=== PATIENT | male | born 1945 | race Caucasian/White ===

== ENCOUNTER 2018-05-19 00:08 | Inpatient (IN) ==
[2018-05-19] MEDS ORDERED: Sod Chloride 0.9% Inj 1,000 ML IV.SIG ONE (00:41)
[2018-05-19 01:10] LABS: Baso % (Auto) 0.2 % (0.0-2.0); Eos # (Auto) 0.1 th/mm3 (0.0-0.4); Eos % (Auto) 0.7 % (0.0-4.0); Hematocrit 30.3 % (39.0-51.0); Hemoglobin 10.2 gm/dL (13.0-17.0); Lymph # (Auto) 0.5 th/mm3 (1.0-4.8); Lymph % (Auto) 4.1 % (9.0-44.0); Mean Corpuscular HGB Conc 33.5 % (32.0-36.0); Mean Corpuscular Volume 104.4 fL (80.0-100.0); Mean Platelet Volume 8.3 fL (7.0-11.0); Mono # (Auto) 1.8 th/mm3 (0.0-0.9); Mono % (Auto) 15.6 % (0.0-8.0); Neut # (Auto) 9.2 th/mm3 (1.8-7.7); Neut % (Auto) 79.4 % (16.0-70.0); Platelet Count 206 th/mm3 (150-450); Red Cell Distribution Width 13.6 % (11.6-17.2); White Blood Count 11.6 th/mm3 (4.0-11.0)
[2018-05-19 01:16] LABS: Amorphous Sediment,Urine Rare /hpf; Bilirubin,Urine Negative (Negative); Clarity,Urine Clear (Clear); Color,Urine Yellow (Yellw/Straw); Glucose,Urine (UA) Negative (Negative); Leukocyte Esterase,Urine Negative (Negative); Mucus,Urine Few /lpf (Occasional); Nitrite,Urine Negative (Negative); Specific Gravity,Urine 1.012 (1.002-1.035)
[2018-05-19 01:27] LABS: Alkaline Phosphatase 94 U/L (45-117); Total Protein 7.5 g/dL (6.4-8.2)
--- NOTE | 2018-05-19 01:31 | ED ---
HPI General Chief Complaint: Abdominal Pain Stated Complaint: Dizziness Time Seen by Provider: 05/19/18 00:35 Source: patient Mode of arrival: ambulatory Limitations: no limitations History of Present Illness HPI narrative: 72-year-old male came to the emergency room with history of lower abdominal pain that started yesterday. Patient points to the lower part of the abdomen and says that the pain is worse when he bends over to tie his shoelaces. Currently the pain is 0 out of 10 but at its worst it has been 7 or 8 out of 10. He has been nauseous but no vomiting diarrhea. Patient went to the urgent care where after listening to his history that admitted him going to the emergency room. Vital signs are relatively stable. Patient says he has been getting chills at home with a T-max of 102. No such similar pain in the past. Related Data Home Medications Medication Instructions Recorded Confirmed Zopiclone 7 mg PO HS 05/19/18 allopurinol 100 mg PO DAILY 05/19/18 05/19/18 ferrous fumarate 600 mg PO HS 05/19/18 05/19/18 furosemide 40 mg PO DAILY 05/19/18 05/19/18 Previous Rx's Medication Instructions Recorded cyclobenzaprine 5 mg PO Q8H PRN #10 tab 05/23/18 levofloxacin 250 mg PO Q48H #4 tab 05/23/18 metronidazole [Flagyl] 500 mg PO Q8H 7 Days #21 tab 05/23/18 pantoprazole [Protonix] 40 mg PO DAILY #30 tab 05/23/18 prednisone 10 mg PO DIRECTED #13 tab 05/23/18 Allergies Allergy/AdvReac Type Severity Reaction Status Date / Time No Known Allergies Allergy Verified 05/19/18 00:20 Review of Systems ROS: all other systems reviewed are negative [facility] Medical History Medical History CKD (chronic kidney disease) (Acute) Gout (Acute) Hypertension (Acute) Liver cyst (Acute) Low iron (Acute) Macular degeneration (Acute) Surgical History Surgical History H/O umbilical hernia repair (Acute) Social History Social History Substance History: No History of Abuse Second Hand Smoke Exposure: No Smoking Status: Never smoker How Often Do You Have a Drink Containing Alcohol: 4 or more times a week Recent Travel in [facility] within the Last 8 Weeks: No Recent Out of Country Travel within the Last 8 Weeks: No Immunization History Tetanus Immunization: <5 Years Exam Narrative Exam Narrative: GENERAL: Awake, alert, anxious, moderate distress, obese SKIN: Focused skin assessment warm/dry. HEAD: Atraumatic. Normocephalic. EYES: Pupils equal and round. No scleral icterus. No injection or drainage. ENT: No nasal bleeding or discharge. Mucous membranes pink and moist. NECK: Trachea midline. No JVD. CARDIOVASCULAR: Regular rate and rhythm. No murmur appreciated. RESPIRATORY: No accessory muscle use. Clear to auscultation. Breath sounds equal bilaterally. GASTROINTESTINAL: Abdomen soft, non-tender, nondistended. Hepatic and splenic margins not palpable. MUSCULOSKELETAL: No obvious deformities. No clubbing. No cyanosis. No edema. NEUROLOGICAL: Awake and alert. No obvious cranial nerve deficits. Motor grossly within normal limits. Normal speech. PSYCHIATRIC: Appropriate mood and affect; insight and judgment normal. Course Initial Documented Vital Signs Temperature 99.1 F 05/19/18 00:20 Pulse Rate 97 H 05/19/18 00:20 Respiratory Rate 16 05/19/18 00:20 Blood Pressure 134/64 05/19/18 00:20 Pulse Oximetry 94 L 05/19/18 00:20 Last Documented Vital Signs Temperature 97.2 F L 05/23/18 05:10 Pulse Rate 70 05/23/18 05:10 Respiratory Rate 18 05/23/18 05:10 Blood Pressure 98/53 L 05/23/18 05:10 Pulse Oximetry 96 05/23/18 05:10 Critical Care Time Critical Care Time: Yes Total Critical Care Time: 30 Attestation: Aggregate critical care time was 30 minutes. Time to perform other separately billable procedures was not included in the critical care time. My time did not include minutes spent treating any other patients simultaneously or on activities that did not directly contribute to the patient's treatment. The services I provided to this patient were to treat and/or prevent clinically significant deterioration that could result in: Acute renal failure, hyperkalemia, correction I provided critical care services requiring my management, as noted below: Chart data review, documentation time, medication orders and management, vital sign assessments/reviewing monitor data, ordering and reviewing lab tests, ordering and interpreting/reviewing x-rays and diagnostic studies, care of the patient and discussion of the patient with the admitting physicians. Medical Decision Making MDM Narrative Medical decision making narrative: 1:30 AM awaiting for blood test result. Patient has been given 1 L of IV fluid bolus and morphine for the pain. Awaiting for the blood test results. 2:55 AM blood test results are obtained and patient has acute renal failure with a potassium of 5.9. BUN is 19 and creatinine is 5.95. Case was discussed with the narrow gauge operator who at this point did not think the patient needed to go to the ICU. I also discussed the case with Dr. Lee was concession manager for nephrology. He does not think patient needs an emergent dialysis however he will consult on the patient. Awaiting for the hospitalist to call back. Meanwhile the CT scan was done without contrast and shows diverticulosis. UA is negative. At this point my concern is that most probably patient has this pain from diverticulitis. I have given him oral ciprofloxacin and Flagyl. Blood culture has been ordered and pending. I have updated the patient and his regarding this. They are agreeable to the plan of admission. Medical Screen Exam Complete: Yes Emergency Medical Condition: Yes Lab Data Result diagrams: 05/21/18 06:05 05/23/18 06:00 Lab Results 05/19/18 05/19/18 05/19/18 Range/Units 00:55 00:55 00:55 WBC 11.6 H (4.0-11.0) th/mm3 RBC 2.90 L (4.50-5.90) mil/mm3 Hgb 10.2 L (13.0-17.0) gm/dL Hct 30.3 L (39.0-51.0) % MCV 104.4 H (80.0-100.0) fL MCH 35.0 H (27.0-34.0) pg MCHC 33.5 (32.0-36.0) % RDW 13.6 (11.6-17.2) % Plt Count 206 (150-450) th/mm3 MPV 8.3 (7.0-11.0) fL Neut % (Auto) 79.4 H (16.0-70.0) % Lymph % (Auto) 4.1 L (9.0-44.0) % [place] % (Auto) 15.6 H (0.0-8.0) % Eos % (Auto) 0.7 (0.0-4.0) % Baso % (Auto) 0.2 (0.0-2.0) % Neut # (Auto) 9.2 H (1.8-7.7) th/mm3 Lymph # (Auto) 0.5 L (1.0-4.8) th/mm3 [place] # (Auto) 1.8 H (0.0-0.9) th/mm3 Eos # (Auto) 0.1 (0.0-0.4) th/mm3 Baso # (Auto) 0.0 (0.0-0.2) th/mm3 WBC Differential . Differential Comment Auto diff final Sodium 131 L (136-145) meq/L Potassium 5.9 H (3.5-5.1) meq/L Chloride 103 (98-107) meq/L Carbon Dioxide 18.6 L (21.0-32.0) meq/L Anion Gap 9 (5-15) meq/L BUN 92 H (7-18) mg/dL Creatinine 5.92 H (0.60-1.30) mg/dL Estimated GFR 9 L (>89) mL/min Random Glucose 105 (74-106) mg/dL Lactic Acid 0.8 (0.4-2.0) mmol/L Calcium 8.2 L (8.5-10.1) mg/dL Phosphorus (2.5-4.9) mg/dL Magnesium 2.2 (1.5-2.5) mg/dL Total Bilirubin 0.4 (0.2-1.0) mg/dL AST 33 (15-37) U/L ALT 33 (12-78) U/L Alkaline Phosphatase 94 (45-117) U/L Total Protein 7.5 (6.4-8.2) g/dL Albumin 3.1 L (3.4-5.0) g/dL Lipase 223 (73-393) U/L Vitamin B12 (193-986) pg/mL Folate (3.1-17.5) ng/mL Urine Color (Yellw/Straw) Urine Clarity (Clear) Urine pH (5.0-8.5) Ur Specific [place] (1.002-1.035) Urine Protein (Neg-Trace) mg/dL Urine Glucose (UA) (Negative) mg/dL Urine Ketones (Negative) mg/dL Urine Occult Blood (Negative) Urine Nitrate (Negative) Urine Bilirubin (Negative) Urine Urobilinogen (Less than 2) mg/dL Ur Leukocyte Esterase (Negative) Urine RBC (0-3) /hpf Urine WBC (0-5) /hpf Amorphous Sediment (None) /hpf Urine Mucus (Occasional) /lpf Micro UA Comment Ur Microscopic Review Urine Culture Comments 05/19/18 05/19/18 05/19/18 Range/Units 01:00 13:05 13:05 WBC 9.5 (4.0-11.0) th/mm3 RBC 2.42 L (4.50-5.90) mil/mm3 Hgb 9.0 L (13.0-17.0) gm/dL Hct 25.4 L (39.0-51.0) % MCV 104.8 H (80.0-100.0) fL MCH 36.9 H (27.0-34.0) pg MCHC 35.2 (32.0-36.0) % RDW 13.8 (11.6-17.2) % Plt Count 170 (150-450) th/mm3 MPV 8.0 (7.0-11.0) fL Neut % (Auto) 78.6 H (16.0-70.0) % Lymph % (Auto) 6.2 L (9.0-44.0) % [place] % (Auto) 14.6 H (0.0-8.0) % Eos % (Auto) 0.3 (0.0-4.0) % Baso % (Auto) 0.3 (0.0-2.0) % Neut # (Auto) 7.5 (1.8-7.7) th/mm3 Lymph # (Auto) 0.6 L (1.0-4.8) th/mm3 [place] # (Auto) 1.4 H (0.0-0.9) th/mm3 Eos # (Auto) 0.0 (0.0-0.4) th/mm3 Baso # (Auto) 0.0 (0.0-0.2) th/mm3 WBC Differential . Differential Comment Auto diff final Sodium 136 (136-145) meq/L Potassium 4.8 D (3.5-5.1) meq/L Chloride 108 H (98-107) meq/L Carbon Dioxide 20.0 L (21.0-32.0) meq/L Anion Gap 8 (5-15) meq/L BUN 84 H (7-18) mg/dL Creatinine 5.33 H (0.60-1.30) mg/dL Estimated GFR 11 L (>89) mL/min Random Glucose 153 H (74-106) mg/dL Lactic Acid (0.4-2.0) mmol/L Calcium 8.1 L (8.5-10.1) mg/dL Phosphorus (2.5-4.9) mg/dL Magnesium (1.5-2.5) mg/dL Total Bilirubin (0.2-1.0) mg/dL AST (15-37) U/L ALT (12-78) U/L Alkaline Phosphatase (45-117) U/L Total Protein (6.4-8.2) g/dL Albumin (3.4-5.0) g/dL Lipase (73-393) U/L Vitamin B12 (193-986) pg/mL Folate (3.1-17.5) ng/mL Urine Color Yellow (Yellw/Straw) Urine Clarity Clear (Clear) Urine pH 5.0 (5.0-8.5) Ur Specific [place] 1.012 (1.002-1.035) Urine Protein 30 H (Neg-Trace) mg/dL Urine Glucose (UA) Negative (Negative) mg/dL Urine Ketones Negative (Negative) mg/dL Urine Occult Blood Small H (Negative) Urine Nitrate Negative (Negative) Urine Bilirubin Negative (Negative) Urine Urobilinogen Less than 2 (Less than 2) mg/dL Ur Leukocyte Esterase Negative (Negative) Urine RBC Less than 1 (0-3) /hpf Urine WBC Less than 1 (0-5) /hpf Amorphous Sediment Rare H (None) /hpf Urine Mucus Few H (Occasional) /lpf Micro UA Comment Culture not ind Ur Microscopic Review Not Reportable Urine Culture Comments Culture not ind 05/20/18 05/20/18 05/21/18 Range/Units 05:19 05:19 06:05 WBC 8.4 8.2 (4.0-11.0) th/mm3 RBC 2.43 L 2.47 L (4.50-5.90) mil/mm3 Hgb 8.8 L 8.9 L (13.0-17.0) gm/dL Hct 26.1 L 26.2 L (39.0-51.0) % MCV 107.1 H 106.1 H (80.0-100.0) fL MCH 36.2 H 36.1 H (27.0-34.0) pg MCHC 33.8 34.1 (32.0-36.0) % RDW 14.0 14.2 (11.6-17.2) % Plt Count 167 180 (150-450) th/mm3 MPV 8.0 7.7 (7.0-11.0) fL Neut % (Auto) 72.3 H 76.1 H (16.0-70.0) % Lymph % (Auto) 8.9 L 7.2 L (9.0-44.0) % Ulster % (Auto) 16.8 H 14.9 H (0.0-8.0) % Eos % (Auto) 1.6 1.6 (0.0-4.0) % Baso % (Auto) 0.4 0.2 (0.0-2.0) % Neut # (Auto) 6.1 6.2 (1.8-7.7) th/mm3 Lymph # (Auto) 0.7 L 0.6 L (1.0-4.8) th/mm3 [place] # (Auto) 1.4 H 1.2 H (0.0-0.9) th/mm3 Eos # (Auto) 0.1 0.1 (0.0-0.4) th/mm3 Baso # (Auto) 0.0 0.0 (0.0-0.2) th/mm3 WBC Differential . . Differential Comment Auto diff final Auto diff final Sodium 139 (136-145) meq/L Potassium 4.6 (3.5-5.1) meq/L Chloride 109 H (98-107) meq/L Carbon Dioxide 19.0 L (21.0-32.0) meq/L Anion Gap 11 (5-15) meq/L BUN 84 H (7-18) mg/dL Creatinine 5.26 H (0.60-1.30) mg/dL Estimated GFR 11 L (>89) mL/min Random Glucose 92 (74-106) mg/dL Lactic Acid (0.4-2.0) mmol/L Calcium 7.8 L (8.5-10.1) mg/dL Phosphorus 3.9 (2.5-4.9) mg/dL Magnesium 2.0 (1.5-2.5) mg/dL Total Bilirubin (0.2-1.0) mg/dL AST (15-37) U/L ALT (12-78) U/L Alkaline Phosphatase (45-117) U/L Total Protein (6.4-8.2) g/dL Albumin (3.4-5.0) g/dL Lipase (73-393) U/L Vitamin B12 (193-986) pg/mL Folate (3.1-17.5) ng/mL Urine Color (Yellw/Straw) Urine Clarity (Clear) Urine pH (5.0-8.5) Ur Specific [place] (1.002-1.035) Urine Protein (Neg-Trace) mg/dL Urine Glucose (UA) (Negative) mg/dL Urine Ketones (Negative) mg/dL Urine Occult Blood (Negative) Urine Nitrate (Negative) Urine Bilirubin (Negative) Urine Urobilinogen (Less than 2) mg/dL Ur Leukocyte Esterase (Negative) Urine RBC (0-3) /hpf Urine WBC (0-5) /hpf Amorphous Sediment (None) /hpf Urine Mucus (Occasional) /lpf Micro UA Comment Ur Microscopic Review Urine Culture Comments 05/21/18 05/22/18 05/23/18 Range/Units 06:05 05:07 06:00 WBC (4.0-11.0) th/mm3 RBC (4.50-5.90) mil/mm3 Hgb (13.0-17.0) gm/dL Hct (39.0-51.0) % MCV (80.0-100.0) fL MCH (27.0-34.0) pg MCHC (32.0-36.0) % RDW (11.6-17.2) % Plt Count (150-450) th/mm3 MPV (7.0-11.0) fL Neut % (Auto) (16.0-70.0) % Lymph % (Auto) (9.0-44.0) % [place] % (Auto) (0.0-8.0) % Eos % (Auto) (0.0-4.0) % Baso % (Auto) (0.0-2.0) % Neut # (Auto) (1.8-7.7) th/mm3 Lymph # (Auto) (1.0-4.8) th/mm3 [place] # (Auto) (0.0-0.9) th/mm3 Eos # (Auto) (0.0-0.4) th/mm3 Baso # (Auto) (0.0-0.2) th/mm3 WBC Differential Differential Comment Sodium 140 142 140 (136-145) meq/L Potassium 4.4 4.5 4.6 (3.5-5.1) meq/L Chloride 110 H 113 H 113 H (98-107) meq/L Carbon Dioxide 19.0 L 19.6 L 17.6 L (21.0-32.0) meq/L Anion Gap 11 9 9 (5-15) meq/L BUN 75 H 68 H 66 H (7-18) mg/dL Creatinine 4.76 H 4.32 H 4.03 H (0.60-1.30) mg/dL Estimated GFR 12 L 14 L 15 L (>89) mL/min Random Glucose 87 96 181 H (74-106) mg/dL Lactic Acid (0.4-2.0) mmol/L Calcium 7.8 L 7.9 L 8.1 L (8.5-10.1) mg/dL Phosphorus (2.5-4.9) mg/dL Magnesium (1.5-2.5) mg/dL Total Bilirubin 0.3 (0.2-1.0) mg/dL AST 17 (15-37) U/L ALT 28 (12-78) U/L Alkaline Phosphatase 89 (45-117) U/L Total Protein 6.2 L D (6.4-8.2) g/dL Albumin 2.7 L (3.4-5.0) g/dL Lipase (73-393) U/L Vitamin B12 477 (193-986) pg/mL Folate 8.8 (3.1-17.5) ng/mL Urine Color (Yellw/Straw) Urine Clarity (Clear) Urine pH (5.0-8.5) Ur Specific [place] (1.002-1.035) Urine Protein (Neg-Trace) mg/dL Urine Glucose (UA) (Negative) mg/dL Urine Ketones (Negative) mg/dL Urine Occult Blood (Negative) Urine Nitrate (Negative) Urine Bilirubin (Negative) Urine Urobilinogen (Less than 2) mg/dL Ur Leukocyte Esterase (Negative) Urine RBC (0-3) /hpf Urine WBC (0-5) /hpf Amorphous Sediment (None) /hpf Urine Mucus (Occasional) /lpf Micro UA Comment Ur Microscopic Review Urine Culture Comments Imaging Data Radiologist's impression: Abdomen/Pelvis CT 05/19/18 00:41 CONCLUSION: 1. Polycystic kidney and liver disease with marked enlargement of the viscera. 2. No acute findings. Colonic diverticulosis. Cholangiopancreatography MRI 05/20/18 00:00 CONCLUSION: 1. Findings consistent with autosomal dominant polycystic kidney disease with innumerable hepatic and renal cysts present. Liver and kidneys are enlarged. 2. No acute findings seen. No gallbladder wall thickening demonstrated. No stones or evidence of ductal obstruction. Gallbladder Ultrasound 05/20/18 00:00 CONCLUSION: 1. Limited examination. 2. No definitive sonographic evidence for cholelithiasis or acute cholecystitis. 3. Numerous hepatic cysts similar to previous exams and consistent with polycystic disease. ECG Data Attestation: I personally reviewed and interpreted this ECG as follows: Interpretation: Twelve-lead EKG was reviewed by me. Normal sinus rhythm, normal axis, nonspecific, lateral T wave inversions. Heart rate of 80 bpm Discharge Plan Discharge Disposition Patient Disposition: 30 Still Patient Discharge Condition Condition: Stable Discharge Order Discharge Orders: Discharge Order (Routine); Ordered 05/23/18 Ordered By: Eduin Ordonez Discharge Details Anticipated Discharge Date: 05/23/18 Physicians Team ED Provider: Yary Fernandes Primary Care Provider: Primary Care Manish,Talia Attending Provider: Eduin Ordonez Other Providers: Saurav Lee ; Tessa Kasper Status ED Status: Left Department Discharge Information Discharge Date/Time: 05/19/18 04:52
--- NOTE | 2018-05-19 01:33 | CT ---
EXAM DATE: 05/19/2018 1:10 AM EST AGE/SEX: 72 years / Male INDICATIONS: Low abdominal pressure X 4 days. CLINICAL DATA: This is the patient's initial encounter. Patient reports that signs and symptoms have been present for 4 - 6 days and indicates a pain score of 4/10. MEDICAL/SURGICAL HISTORY: Renal disease, end stage. Hypertension. Umbilical hernia repair. RADIATION DOSE: 13.42 CTDI (mGy) COMPARISON: No prior exams available for comparison. TECHNIQUE: Multiple contiguous axial images were obtained through the abdomen. Images were obtained using multiple row detector helical technique. Using automated exposure control and adjustment of the mA and/or kV according to patient size, radiation dose was kept as low as reasonably achievable to o btain optimal diagnostic quality images. DICOM format image data is available electronically for rev iew and comparison. FINDINGS: Lung bases are clear. No pleural or pericardial effusion. There is polycystic kidney and liver disease. Liver is enlarged to 28 cm in length and kidneys enlarg ed to 18 cm in length. Innumerable cysts present. There is colonic diverticulosis without evidence for diverticulitis. No free fluid or free air. No bianka wel obstruction. No significant abnormality in the spleen, adrenals or pancreas. No free air or free fluid. CONCLUSION: 1. Polycystic kidney and liver disease with marked enlargement of the viscera. 2. No acute findings. Colonic diverticulosis. Electronically signed by: Adan Lopez MD 05/19/2018 1:32 AM EST
[2018-05-19] MEDS ORDERED: Ciprofloxacin 500 MG Tablet PO ONE (01:40)
[2018-05-19] MEDS ORDERED: metroNIDAZOLE 500 MG Tablet PO ONE (01:40)
[2018-05-19 01:45] LABS: Alanine Aminotransferase 33 U/L (12-78); Albumin 3.1 g/dL (3.4-5.0); Anion Gap 9 meq/L (5-15); Aspartate Aminotransferase 33 U/L (15-37); Blood Urea Nitrogen 92 mg/dL (7-18); Calcium 8.2 mg/dL (8.5-10.1); Carbon Dioxide 18.6 meq/L (21.0-32.0); Chloride 103 meq/L (98-107); Glomerular Filtration Rate 9 mL/min (>89); Glucose,Random 105 mg/dL (74-106); Lipase 223 U/L (73-393); Magnesium 2.2 mg/dL (1.5-2.5); Sodium 131 meq/L (136-145)
[2018-05-19 02:04] LABS: Potassium 5.9 meq/L (3.5-5.1)
[2018-05-19] MEDS ORDERED: Sodium Bicarbonate 8.4% Inj 50 MEQ/50 ML Syringe IV.PUSH ONE (02:07)
[2018-05-19] MEDS ORDERED: Calcium Chloride Inj 1 GM/10 ML Syringe IV.PUSH ONE (02:07)
[2018-05-19] MEDS ORDERED: Bisacodyl 10 MG Supp RECTAL PRN (03:40)
[2018-05-19] MEDS ORDERED: Acetaminophen 325 MG Tablet PO PRN (03:40)
--- NOTE | 2018-05-19 08:35 | P.HPIM ---
History of Present Illness Primary Care Physician: Dr. Singleton Chief Complaint: lower abd pain History of Present Illness: This is a 72-year-old male With a past medical history which includes chronic kidney disease stage IV, gout, arthritis, BPH and hypertension. Patient came to the emergency room yesterday with history of lower abdominal x 3-4 day. Patient describes bilateral lower abdominal pain as a constant dull ache since Monday. Patient also reports T-max at home 102, chills, mild nausea and lack of appetite. Patient denies bright red bleeding per rectum. Patient does report black stools but reports his stools are typically black as he takes iron supplementation. Patient denies vomiting chest pain shortness of breath. Patient primarily lives in [place] does have a home here in [place] and reports he comes down and stays for a few months every year. Patient has a his primary supervisor plate pasting in [place] does not follow with a local supervisor plate pasting. Patient reports he is chronic kidney disease stage IV he believes his GFR is normally around 14 and in fact is waiting for a fistula in [place]. PMH: chronic kidney disease stage IV, gout, arthritis, BPH and hypertension PSxH: Colonoscopy, hand surgery, Hernia repair and Vasectomy Social history: , exercises regularly Retired Occasional EtOH use Denies tobacco use FMH: reviewed and noncontributory Inpatient Certification Inpatient Certification: I certify that the inpatient services were ordered in accordance with Medicare regulations governing the order. This includes certification that hospital inpatient services are reasonable and necessary and in the case of services not specified as inpatient-only under 42 CFR 419.22(n), that they are appropriately provided as inpatient services in accordance to with the 2-midnight benchmark under 43 CFR 412.3(e) Estimated Total Length of Stay (Days): 3 Plans for Post Hospital Care: Home Medications and Allergies Allergies Allergy/AdvReac Type Severity Reaction Status Date / Time No Known Allergies Allergy Verified 05/19/18 00:20 Home Medications Medication Instructions Recorded Confirmed Type Zopiclone 7 mg PO HS 05/19/18 History allopurinol 100 mg PO DAILY 05/19/18 05/19/18 History ferrous fumarate 600 mg PO HS 05/19/18 05/19/18 History furosemide 40 mg PO DAILY 05/19/18 05/19/18 History irbesartan 150 mg PO DAILY 11/24/18 11/24/18 History nifedipine 30 mg PO QAM 05/19/18 05/19/18 History Active Medications: Active Medications Acetaminophen (Tylenol) 650 mg PO Q4H PRN PRN Reason: Temp > 100.4 Al Hydroxide/Mg Hydroxide (Milk Of Magnesia Liq) 30 ml PO Q12H PRN PRN Reason: Mild Constipation Allopurinol (Zyloprim) 100 mg PO DAILY MAGUI Bisacodyl (Dulcolax Supp) 10 mg RECTAL DAILY PRN PRN Reason: SEVERE CONSITIPATION Ferrous Sulfate (Ferosul) 325 mg PO DAILY MAGUI Sodium Chloride (Ns Inj) 1,000 mls @ 70 mls/hr IV.CONT .[id number] MAGUI Lactulose (Lactulose Liq) 30 ml PO DAILY PRN PRN Reason: SEVERE CONSITIPATION Nifedipine (Procardia Xl) 30 mg PO DAILY MAGUI Ondansetron HCl (Zofran Inj) 4 mg IV.PUSH Q6H PRN PRN Reason: NAUSEA OR VOMITING Sennosides (Senokot) 17.2 mg PO Q12H PRN PRN Reason: Moderate Constipation Sodium Chloride (Ns Flush) 2 ml IV.FLUSH PRN PRN PRN Reason: FLUSH AFTER USING IV ACCESS Physical Exam Vital signs: Last Vital Signs Temp 98.1 F 05/19/18 04:45 Pulse 94 H 05/19/18 04:45 Resp 18 05/19/18 04:45 BP 138/63 05/19/18 04:45 Pulse Ox 94 L 05/19/18 04:45 Narrative: GENERAL: This is a well-nourished, well-developed patient, in no apparent distress. CARDIOVASCULAR: Regular rate and rhythm RESPIRATORY: Clear to auscultation. Breath sounds equal bilaterally. No wheezes , rales, or rhonchi. GASTROINTESTINAL: Abdomen soft, mild tenderness bilateral suprapubic area, moderate distention. Normal active bowel sounds MUSCULOSKELETAL: Extremities without clubbing, cyanosis, or edema. NEURO: Alert & Oriented x4 to person, place, time, situation. Moves all ext x4 Results Labs CBC & Chem 7: 05/19/18 13:05 05/19/18 13:05 Caprini VTE Risk Assessment Caprini VTE Risk Assessment: No/Low Risk (score <= 1) Caprini Risk Assessment Model: Point Value = 1 Point Value = 2 Point Value = 3 Point Value = 5 Age 41-60 Minor surgery BMI > 25 kg/m2 Swollen legs Varicose veins or History of unexplained or recurrent spontaneous Oral contraceptives or hormone replacement Sepsis (< 1 month) Serious lung disease, including pneumonia (< 1 month) Abnormal pulmonary function Acute myocardial infarction Congestive heart failure (< 1 month) History of inflammatory bowel disease Medical patient at bed rest Age 61-74 Arthroscopic surgery Major open surgery (> 45 min) Laparoscopic surgery (> 45 min) Malignancy Confined to bed (> 72 hours) Immobilizing plaster cast Central venous access Age >= 75 History of VTE Family history of VTE Factor V Leiden Prothrombin [id number] Lupus anticoagulant Anticardiolipin antibodies Elevated serum homocysteine Heparin-induced thrombocytopenia Other congenital or acquired thrombophilia Stroke (< 1 month) Elective arthroplasty Hip, pelvis, or leg fracture Acute spinal cord injury (< 1 month) Prophylaxis Regimen: Total Risk Factor Score Risk Level Prophylaxis Regimen 0-1 Low Early ambulation 2 Moderate Order ONE of the following: *Sequential Compression Device (SCD) *Heparin 5000 units SQ BID 3-4 Higher Order ONE of the following medications: *Heparin 5000 units SQ TID *Enoxaparin/Lovenox 40 mg SQ daily (WT < 150 kg, CrCl > 30 mL/min) *Enoxaparin/Lovenox 30 mg SQ daily (WT < 150 kg, CrCl > 10-29 mL/min) *Enoxaparin/Lovenox 30 mg SQ BID (WT < 150 kg, CrCl > 30 mL/min) AND/OR *Sequential Compression Device (SCD) 5 or more Highest Order ONE of the following medications: *Heparin 5000 units SQ TID (Preferred with Epidurals) *Enoxaparin/Lovenox 40 mg SQ daily (WT < 150 kg, CrCl > 30 mL/min) *Enoxaparin/Lovenox 30 mg SQ daily (WT < 150 kg, CrCl > 10-29 mL/min) *Enoxaparin/Lovenox 30 mg SQ BID (WT < 150 kg, CrCl > 30 mL/min) AND *Sequential Compression Device (SCD) Assessment and Plan Plan This is a 72-year-old male With a past medical history which includes chronic kidney disease stage IV, gout, arthritis, BPH and hypertension. Patient came to the emergency room yesterday with history of lower abdominal x 3-4 day. Patient describes bilateral lower abdominal pain as a constant dull ache since Monday. Patient also reports T-max at home 102, chills, mild nausea and lack of appetite. Patient denies bright red bleeding per rectum. Patient does report black stools but reports his stools are typically black as he takes iron supplementation. Patient denies vomiting chest pain shortness of breath. Patient primarily lives in [place] does have a home here in [place] and reports he comes down and stays for a few months every year. Patient has a his primary supervisor plate pasting in [place] does not follow with a local supervisor plate pasting. Patient reports he is chronic kidney disease stage IV he believes his GFR is normally around 14 and in fact is waiting for an AV fistula in [place]. ASMMI - Patient has a his primary supervisor plate pasting in [place] does not follow with a local supervisor plate pasting. Patient reports he is chronic kidney disease stage IV he believes his GFR is normally around 14 and in fact is waiting for an AV fistula in [place]. - baseline CKD stage 4 with creatinine 3.26 to 3.43 - renal function on admission BUN 92, creatinine 5.92 and estimated GFR 9 - IVF - consult to nephrology Abdominal pain Diverticulitis Abdomen/Pelvis CT 05/19/18 1. Polycystic kidney and liver disease with marked enlargement of the viscera. 2. No acute findings. Colonic diverticulosis. patient given cipro 500 mg and Flagyl x1 in the ER for possible diverticulitis WBC 11.6 Will continue Levaquin 250 mg Q48H and Flagyl 500mg PO Q8H Hyperkalemia On admission patient's potassium was 5.9 Patient given calcium gluconate, D50 and insulin in the emergency department continuous telemetry recheck BMP pending HTN Hold home Furosemide 40 mg daily, irbesartan 150 mg daily due to renal function monitor renal function Constipation Lactulose Q4H until BM DVT Prophylaxis with SCDs H&P: Quality VTE Deep Vein Thrombosis/Pulmonary Embolism Present on Admission: No
[2018-05-19] MEDS: Allopurinol 100 MG Tablet PO SCH (09:24)
[2018-05-19] MEDS: Sod Chloride 0.9% Inj 1,000 ML IV.CONT SCH ×2 (09:24→19:45)
[2018-05-19] MEDS: Ferrous Sulfate 325 MG Tablet PO SCH (09:24)
[2018-05-19] MEDS ORDERED: levoFLOXacin 250 MG Tablet PO SCH (13:15)
[2018-05-19 13:23] LABS: Baso % (Auto) 0.3 % (0.0-2.0); Eos % (Auto) 0.3 % (0.0-4.0); Hematocrit 25.4 % (39.0-51.0); Lymph # (Auto) 0.6 th/mm3 (1.0-4.8); Lymph % (Auto) 6.2 % (9.0-44.0); Mean Corpuscular HGB Conc 35.2 % (32.0-36.0); Mean Corpuscular Hemoglobin 36.9 pg (27.0-34.0); Mean Corpuscular Volume 104.8 fL (80.0-100.0); Mono # (Auto) 1.4 th/mm3 (0.0-0.9); Mono % (Auto) 14.6 % (0.0-8.0); Neut # (Auto) 7.5 th/mm3 (1.8-7.7); Neut % (Auto) 78.6 % (16.0-70.0); Platelet Count 170 th/mm3 (150-450); Red Blood Count 2.42 mil/mm3 (4.50-5.90); Red Cell Distribution Width 13.8 % (11.6-17.2); White Blood Count 9.5 th/mm3 (4.0-11.0)
[2018-05-19 13:34] LABS: Calcium 8.1 mg/dL (8.5-10.1); Potassium 4.8 meq/L (3.5-5.1)
--- NOTE | 2018-05-19 13:43 | ECG ---
Date Performed: 05/19/2018 Time Performed: 02:23:13 PTAGE: 72 years EKG: Sinus rhythm ST DEVIATION AND MODERATE T-WAVE ABNORMALITY, CONSIDER LATERAL ISCHEMIA ABNORMAL ECG NO PREVIOUS TRACING DOCTOR: Hilario Villarreal Interpretating Date/Time 05/19/2018 13:41:31
--- NOTE | 2018-05-19 13:45 | P.CONNP ---
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 Review of Systems other Constitutional: Reports malaise Eyes: Denies blind spots, Denies blurry vision, Denies bulging eyes, Denies change in vision, Denies double vision, Denies discharge, Denies dry eyes, Denies floaters, Denies irritation, Denies itchy eyes, Denies loss of vision, Denies pain, Denies requires corrective lenses, Denies sensitivity to light, Denies other Ears, Nose, Mouth, and Throat: Denies abnormal hearing, Denies bleeding gums, Denies bad breath, Denies change in voice, Denies dental pain, Denies difficulty swallowing, Denies dizziness, Denies dry mouth, Denies ear discharge , Denies ear pain, Denies facial pain, Denies headache(s), Denies hearing loss, Denies hoarseness, Denies lip swelling, Denies nosebleed, Denies mouth lesions, Denies mouth pain, Denies nasal congestion, Denies nasal discharge, Denies nasal obstruction, Denies nasal trauma, Denies neck lump, Denies neck pain, Denies nose pain, Denies pain with swallowing, Denies poor balance, Denies post nasal drip, Denies ringing in the ears, Denies sinus pain, Denies sinus pressure , Denies sore throat, Denies throat swelling, Denies tongue swelling, Denies other Cardiovascular: Denies chest pain, Denies chest pain at rest, Denies chest pain with activity, Denies excessive sweating, Denies fainting, Denies fast heart rate, Denies foot swelling, Denies generalized swelling, Denies irregular heart rhythm, Denies leg pain with activity, Denies leg sores, Denies leg swelling, Denies lightheadedness, Denies radiating jaw, neck or arm pain, Denies rapid, pounding, or irregular heartbeat, Denies shortness of breath, Denies shortness of breath with activity, Denies shortness of breath when lying down, Denies shortness of breath causing sudden awakening, Denies slow heart rate, Denies other Respiratory: Denies change in phlegm color, Denies chest congestion, Denies cough, Denies coughing up blood, Denies excessive phlegm production, Denies pain on inspiration, Denies pain with cough, Denies shortness of breath, Denies shortness of breath with activity, Denies snoring, Denies stridor, Denies wheezing, Denies other Gastrointestinal: Reports abdominal pain, Reports change in bowel habits, Reports constipation, Reports nausea Genitourinary: Denies blood in semen, Denies blood in urine, Denies decreased urination, Denies difficulty urinating, Denies difficulty with ejaculations, Denies erectile dysfunction, Denies genital lesions, Denies genital pain, Denies painful urination, Denies side pain, Denies frequent nighttime urination , Denies painful ejaculations, Denies penile discharge, Denies scrotal swelling , Denies testicle lump, Denies testicle pain, Denies urinary frequency, Denies urinary hesitancy, Denies urinary incontinence, Denies urinary urgency, Denies other Musculoskeletal: Reports joint pain, Reports stiffness Skin/Breast: Reports dry skin Neurologic: Denies abnormal hearing, Denies abnormal movements, Denies abnormal speech, Denies abnormal walking, Denies behavioral changes, Denies burning sensations, Denies confusion, Denies dizziness, Denies fainting, Denies frequent falls, Denies headache(s), Denies lack of coordination, Denies localized weakness, Denies loss of vision, Denies memory loss, Denies numbness, Denies other visual disturbances, Denies radiating pain, Denies restless legs, Denies convulsions, Denies seizure-like activity, Denies sensory deficit, Denies tingling, Denies tingling/numbness/burning sensations, Denies tremor(s), Denies unsteadiness, Denies weakness, Denies other Endocrine: Denies cold intolerance, Denies excessive sweating, Denies flushing, Denies heat intolerance, Denies increased hunger, Denies increased thirst, Denies increased urination, Denies rapid, pounding, or irregular heartbeat, Denies other Hematologic/Lymphatic: Denies easy bleeding, Denies easy bruising, Denies enlarged lymph nodes, Denies other PMFSH - History History Provided By: Patient - Medical History Medical History: Medical History (Last Reviewed 05/19/18 @ 13:41 by Saurav Lee MD) CKD (chronic kidney disease) Gout Hypertension Liver cyst Low iron Macular degeneration - Surgical History Surgical History: Surgical History (Last Reviewed 05/19/18 @ 13:41 by Saurav Lee MD) H/O umbilical hernia repair S/P colonoscopic polypectomy - Social History I have reviewed the patient's Social History: Yes - Tobacco History Second Hand Smoke Exposure: No Tobacco Use In Past 30 Days: No Smoking Status: Never smoker - Alcohol History How Often Do You Have a Drink Containing Alcohol: 4 or more times a week - Substance Use History Substance History: No History of Abuse - Travel History Recent Travel in the [place] Within the Last 8 Weeks: No Recent Travel Out of the Country Within the Last 8 Weeks: No - Immunization History Tetanus Immunization: Unsure Hx Influenza Vaccine This Season: No Medications and Allergies Active Medications: Active Medications Acetaminophen (Tylenol) 650 mg PO Q4H PRN PRN Reason: Temp > 100.4 Hydrocodone Bitart/Acetaminophen ([place] 5/325) 1 tab PO Q6H PRN PRN Reason: PAIN SCALE 1 TO 10 Last Admin: 05/19/18 13:15 Dose: 1 tab Al Hydroxide/Mg Hydroxide (Milk Of Magnesia Liq) 30 ml PO Q12H PRN PRN Reason: Mild Constipation Allopurinol (Zyloprim) 100 mg PO DAILY [facility] Last Admin: 05/19/18 09:24 Dose: 100 mg Bisacodyl (Dulcolax Supp) 10 mg RECTAL DAILY PRN PRN Reason: SEVERE CONSITIPATION Ferrous Sulfate (Ferosul) 325 mg PO DAILY [facility] Last Admin: 05/19/18 09:24 Dose: 325 mg Sodium Chloride (Ns Inj) 1,000 mls @ 70 mls/hr IV.CONT .[id number] [facility] Last Admin: 05/19/18 09:24 Dose: Not Given Lactulose (Lactulose Liq) 30 ml PO DAILY PRN PRN Reason: SEVERE CONSITIPATION Lactulose (Lactulose Liq) 30 ml PO Q4H [facility] Stop: 05/20/18 13:59 Levofloxacin (Levaquin) 250 mg PO Q48H AMGUI Metronidazole (Flagyl) 500 mg PO Q8HR [facility] Nifedipine (Procardia Xl) 30 mg PO DAILY [facility] Last Admin: 05/19/18 09:24 Dose: 30 mg Sennosides (Senokot) 17.2 mg PO Q12H PRN PRN Reason: Moderate Constipation Sodium Chloride (Ns Flush) 2 ml IV.FLUSH PRN PRN PRN Reason: FLUSH AFTER USING IV ACCESS Sodium Polystyrene Sulfonate (Kayexalate Liq) 15 gm PO BID [facility] Allergies Allergy/AdvReac Type Severity Reaction Status Date / Time No Known Allergies Allergy Verified 05/19/18 00:20 Home Medications Medication Instructions Recorded Confirmed Type Zopiclone 7 mg PO HS 05/19/18 History allopurinol 100 mg PO DAILY 05/19/18 05/19/18 History ferrous fumarate 600 mg PO HS 05/19/18 05/19/18 History furosemide 40 mg PO DAILY 05/19/18 05/19/18 History irbesartan 150 mg PO DAILY 05/19/18 05/19/18 History nifedipine 30 mg PO QAM 05/19/18 05/19/18 History Exam Vital signs: Vital Signs 05/19/18 00:20 05/19/18 03:19 05/19/18 03:40 Temperature 99.1 F Pulse Rate 97 H 87 Respiratory Rate 16 16 Blood Pressure 134/64 130/64 Pulse Oximetry 94 L 98 98 05/19/18 04:45 05/19/18 08:00 05/19/18 12:00 Temperature 98.1 F 99.1 F 98 F Pulse Rate 94 H 89 72 Respiratory Rate 18 20 20 Blood Pressure 138/63 120/57 L 103/61 Pulse Oximetry 94 L 94 L 95 Intake & Output 05/18/18 05/19/18 05/19/18 18:59 06:59 18:59 Intake Total 1000 / 1000 360 / 360 Balance 1000 / 1000 360 / 360 Weight 98 kg Intake: IV 1000 / 1000 NS Inj 1,000 ML @ Wide Open IV. 1000 / 1000 SIG BOLUS ONE Rx#:[id number] Oral / 360 Other: Date of Last Bowel Movement 05/18/18 05/18/18 Narrative: GENERAL: Well-nourished, well-developed patient. SKIN: Warm and dry. HEAD: Normocephalic. EYES: No scleral icterus. No injection or drainage. NECK: Supple, trachea midline. No JVD or lymphadenopathy. CARDIOVASCULAR: Regular rate and rhythm without murmurs, gallops, or rubs. RESPIRATORY: Breath sounds equal bilaterally. No accessory muscle use. GASTROINTESTINAL: Abdomen distended mild tenderness on the right side bowel sounds present EXTREMITIES: No edema NEUROLOGICAL: Awake, alert, and oriented x 3. Non-focal. Results - Lab Results 05/19/18 13:05 05/19/18 00:55 Most recent lab results Calcium 8.2 mg/dL (8.5-10.1) L 05/19/18 00:55 Magnesium 2.2 mg/dL (1.5-2.5) 05/19/18 00:55 Assessment and Plan - Assessment (1) Acute kidney injury superimposed on chronic kidney disease Code(s): N17.9 - Acute kidney failure, unspecified; N18.9 - Chronic kidney disease, unspecified Status: Acute (2) Polycystic kidney disease Code(s): Q61.3 - Polycystic kidney, unspecified Status: Acute (3) Hypokalemia Code(s): E87.6 - Hypokalemia Status: Acute (4) Diverticulitis Code(s): K57.92 - Diverticulitis of intestine, part unspecified, without perforation or abscess without bleeding Status: Acute - Plan Patient has hyperkalemia and this could be acute renal failure induced due to dehydration and losartan, this will discontinue I agree with IV hydration continue to use Kayexalate and monitor intake and output Follow BMP There is no acute indication for hemodialysis however I discussed with him that this needs to be set up as outpatient, he will need AV fistula as planning, he is a [place] national and was concerned about copayments however he does have coverage in the [place] We will continue to discuss with him about arrangement of hemodialysis if that is needed during this admission or outpatient He was made aware it will depend on his blood tests and improvement in the GFR Along with his symptoms which needs to resolve, he is on IV hydration and Levaquin, metronidazole is added.
[2018-05-19] MEDS: Sodium Polystyrene Sulfonate/Sorbitol Liq 15 GM/60 ML UDC PO SCH ×2 (15:31→20:58)
[2018-05-19] MEDS: metroNIDAZOLE 500 MG Tablet PO SCH ×2 (15:31→22:25)
[2018-05-19] MEDS ORDERED: Temazepam 15 MG Capsule PO ONE (22:04)
[2018-05-20] MEDS: metroNIDAZOLE 500 MG Tablet PO SCH (05:56)
[2018-05-20 06:12] LABS: Baso % (Auto) 0.4 % (0.0-2.0); Eos # (Auto) 0.1 th/mm3 (0.0-0.4); Eos % (Auto) 1.6 % (0.0-4.0); Hematocrit 26.1 % (39.0-51.0); Hemoglobin 8.8 gm/dL (13.0-17.0); Lymph # (Auto) 0.7 th/mm3 (1.0-4.8); Lymph % (Auto) 8.9 % (9.0-44.0); Mean Corpuscular HGB Conc 33.8 % (32.0-36.0); Mean Corpuscular Hemoglobin 36.2 pg (27.0-34.0); Mean Corpuscular Volume 107.1 fL (80.0-100.0); Mono # (Auto) 1.4 th/mm3 (0.0-0.9); Mono % (Auto) 16.8 % (0.0-8.0); Neut # (Auto) 6.1 th/mm3 (1.8-7.7); Neut % (Auto) 72.3 % (16.0-70.0); Platelet Count 167 th/mm3 (150-450); Red Blood Count 2.43 mil/mm3 (4.50-5.90); White Blood Count 8.4 th/mm3 (4.0-11.0)
[2018-05-20 06:35] LABS: Calcium 7.8 mg/dL (8.5-10.1); Phosphorus 3.9 mg/dL (2.5-4.9); Potassium 4.6 meq/L (3.5-5.1)
[2018-05-20] MEDS: Allopurinol 100 MG Tablet PO SCH (08:20)
[2018-05-20] MEDS: Sodium Polystyrene Sulfonate/Sorbitol Liq 15 GM/60 ML UDC PO SCH (08:20)
[2018-05-20] MEDS: Ferrous Sulfate 325 MG Tablet PO SCH (08:21)
[2018-05-20] MEDS: Sod Chloride 0.9% Inj 1,000 ML IV.CONT SCH (08:21)
--- NOTE | 2018-05-20 09:18 | P.PNIM ---
Addendum entered and electronically signed by WILLIE Alex 12:36: . Original Note: Subjective Interval history: Patient c/o worsening RUQ pain had BM after lactulose - black in color but patient on iron supplementation Physical Exam Vital signs: Last Vital Signs Temp 97.2 F L 05/20/18 00:00 Pulse 68 05/20/18 00:00 Resp 18 05/20/18 00:00 BP 125/60 05/20/18 00:00 Pulse Ox 97 05/20/18 00:00 Narrative: GENERAL: This is a well-nourished, well-developed patient, in no apparent distress. CARDIOVASCULAR: Regular rate and rhythm RESPIRATORY: Clear to auscultation. Breath sounds equal bilaterally. No wheezes , rales, or rhonchi. GASTROINTESTINAL: Abdomen soft, tender RUQ area, moderate distention. Normal active bowel sounds MUSCULOSKELETAL: Extremities without clubbing, cyanosis, or edema. NEURO: Alert & Oriented x4 to person, place, time, situation. Moves all ext x4 Results Labs CBC & Chem 7: 05/20/18 05:19 05/20/18 05:19 Assessment and Plan Assessment (1) Acute kidney injury superimposed on chronic kidney disease: Code(s): N17.9 - Acute kidney failure, unspecified; N18.9 - Chronic kidney disease, unspecified Status: Acute (2) Polycystic kidney disease: Code(s): Q61.3 - Polycystic kidney, unspecified Status: Acute (3) Hypokalemia: Code(s): E87.6 - Hypokalemia Status: Acute (4) Diverticulitis: Code(s): K57.92 - Diverticulitis of intestine, part unspecified, without perforation or abscess without bleeding Status: Acute Plan This is a 72-year-old male With a past medical history which includes chronic kidney disease stage IV, gout, arthritis, BPH and hypertension. Patient came to the emergency room yesterday with history of lower abdominal x 3-4 day. Patient describes bilateral lower abdominal pain as a constant dull ache since Monday. Patient also reports T-max at home 102, chills, mild nausea and lack of appetite. Patient denies bright red bleeding per rectum. Patient does report black stools but reports his stools are typically black as he takes iron supplementation. Patient denies vomiting chest pain shortness of breath. Patient primarily lives in [place] does have a home here in [place] and reports he comes down and stays for a few months every year. Patient has a his primary workers' compensation claims supervisor in [place] does not follow with a local workers' compensation claims supervisor. Patient reports he is chronic kidney disease stage IV he believes his GFR is normally around 14 and in fact is waiting for an AV fistula in [place]. SAMMI - Patient has a his primary workers' compensation claims supervisor in [place] does not follow with a local workers' compensation claims supervisor. Patient reports he is chronic kidney disease stage IV he believes his GFR is normally around 14 and in fact is waiting for an AV fistula in [place]. - baseline CKD stage 4 with creatinine 3.26 (05/23/17) to 3.43 (08/11/17) - renal function on admission BUN 92, creatinine 5.92 and estimated GFR 9 - renal function on 05/19 BUN 84, creatinine 5.33 and estimated GFR 11 - renal function on 05/20 BUN 84, creatinine 5.26 and estimated GFR 11 - IVF - consult to nephrology, appreciate input Abdominal pain Diverticulitis Abdomen/Pelvis CT 05/19/18 1. Polycystic kidney and liver disease with marked enlargement of the viscera. 2. No acute findings. Colonic diverticulosis. patient given cipro 500 mg and Flagyl x1 in the ER for possible diverticulitis WBC 11.6 Will continue Levaquin 250 mg Q48H and Flagyl 500mg Q8H 06/29 blood culture bottle growing gram neg rods WBC trending down, fever improving continue abx and continue to monitor further evaluate gallbladder RUQ pain US gallbladder if nondiagnostic consider MRCP without contrast Roxicodone 10 mg Q4H PRN with Morphine 4 mg IV for breakthrough pain Anemia, macrocytic - likely multifactorial on admission hgb 10.2 -> 9.0 (05/19) -> 8.8 (05/20) partially dilutional patient on continuous IV fluids patient also have polocytic liver and kidney disease will check B12 and Folate as well add protonix IV BID consult GI Hyperkalemia On admission patient's potassium was 5.9 -> 4.8 (05/19) -> 4/6 (05/20) Patient given calcium gluconate, D50 and insulin in the emergency department DC Kayexalate continuous telemetry recheck BMP in AM HTN Hold home Furosemide 40 mg daily, irbesartan 150 mg daily due to renal function monitor renal function Constipation - resolved continue stool softeners laxative as needed DVT Prophylaxis with SCDs Attending Attestation Patient examined. Assessment and plan formulated with Julianne Mike PA-C. I agree with the above. polycystic kidney/liver dz. abdomen pain more right side abdomen. bowels moving. no vomiting. had fever before arrival. ecoli gnr in blood. concern for ?biliary sepsis from anatomical distortion/cystic dz no proof of diverticulitis on imaging. had c scope last month Apr 18 in [place]. gb u/s. mrcp no gadalinium to evaluate liver/bile tree. lft ok. sammi and hyperkalemia better. ckd 5. GI consultation. Renal consulted. anemia. black tarry stool but takes iron. ?egd. cont abx coverage. adjust pain control. Progress Note: Quality VTE Deep Vein Thrombosis/Pulmonary Embolism Present on Admission: No
[2018-05-20] MEDS ORDERED: Morphine Inj 4 MG/ML Vial IV.PUSH PRN (11:21)
[2018-05-20] MEDS: Levofloxacin 250 mg Premix Inj 250 MG/50 ML PIGGYBACK IV.SIG SCH (12:01)
[2018-05-20] MEDS: Pantoprazole Inj 40 MG Vial IV.PUSH SCH ×2 (12:01→20:31)
[2018-05-20] MEDS ORDERED: levoFLOXacin 250 MG Tablet PO SCH (14:00)
--- NOTE | 2018-05-20 16:57 | P.PNNP ---
Subjective Interval history: Complaint of right upper abdominal pain, no rebound no guarding, he does have abdominal distention due to enlarged polycystic kidney disease Physical Exam Vital signs: Vital Signs 05/19/18 17:55 05/19/18 20:00 05/19/18 20:10 Temperature 98.0 F Pulse Rate 70 Respiratory Rate 17 18 Blood Pressure 106/70 Pulse Oximetry 98 97 05/20/18 00:00 05/20/18 08:00 05/20/18 12:00 Temperature 97.2 F L 97.7 F 97.8 F Pulse Rate 68 81 74 Respiratory Rate 18 16 16 Blood Pressure 125/60 119/62 113/58 L Pulse Oximetry 97 95 95 Intake & Output 05/19/18 05/20/18 05/20/18 18:59 06:59 18:59 Intake Total 720 / 720 1050 / 1050 Output Total 8 / 8 Balance 712 / 712 1050 / 1050 Weight 98 kg 99.2 kg Intake: IV 1050 / 1050 NS Inj 1,000 ML @ 70 mls/hr IV. 1000 / 1000 CONT .[id number] MAGUI Rx#:[id number] Levaquin 250 mg Premix Inj 250 50 / 50 mg In 50 ml @ 50 mls/hr IV.SIG Q48H MAGUI Rx#:[id number] Oral 720 / 720 Output: Urine 7 / 7 Stool / Other: # Voids 4 Date of Last Bowel Movement 05/19/18 05/19/18 05/20/18 # Bowel Movements 2 Weight On Admission 98 kg Narrative: GENERAL: Well-nourished, well-developed patient. SKIN: Warm and dry. HEAD: Normocephalic. EYES: No scleral icterus. No injection or drainage. NECK: Supple, trachea midline. No JVD or lymphadenopathy. CARDIOVASCULAR: Regular rate and rhythm without murmurs, gallops, or rubs. RESPIRATORY: Breath sounds equal bilaterally. No accessory muscle use. GASTROINTESTINAL: Abdomen distended mild tenderness on the right side bowel sounds present EXTREMITIES: No edema NEUROLOGICAL: Awake, alert, and oriented x 3. Non-focal. Assessment and Plan - Assessment (1) Acute kidney injury superimposed on chronic kidney disease Code(s): N17.9 - Acute kidney failure, unspecified; N18.9 - Chronic kidney disease, unspecified Status: Acute (2) Polycystic kidney disease Code(s): Q61.3 - Polycystic kidney, unspecified Status: Acute (3) Hypokalemia Code(s): E87.6 - Hypokalemia Status: Acute (4) Diverticulitis Code(s): K57.92 - Diverticulitis of intestine, part unspecified, without perforation or abscess without bleeding Status: Acute - Plan Patient has urinary tract infection most likely has infected cyst he is on Levaquin received a dose today continue to monitor for improvement Potassium in normal range Creatinine 5.[address] Sierra who is going to order an MRI for possible gall bladder issues
--- NOTE | 2018-05-20 17:00 | US ---
EXAM DATE: 05/20/2018 4:56 PM EST AGE/SEX: 72 years / Male INDICATIONS: Right upper quadrant pain. CLINICAL DATA: This is the patient's initial encounter. Patient reports that signs and symptoms have been present for 4 - 6 days and indicates a pain score of 5/10. MEDICAL/SURGICAL HISTORY: Chronic renal failure. Hypertension. Liver cyst. Low iron. Macular d egeneration. Gout. . Umbilical hernia repair. [place] [facility] [place] 05/19/2018. . MEASUREMENTS: Liver:__ 28.8 cm. Common Bile Duct:__ Nonvisualized. FINDINGS: Liver: Redemonstration of numerous hepatic cysts similar to previous CT exam and consistent with weston ycystic disease. Portal Vein: Hepatopedal flow seen in portal vein. Common Duct: No intraluminal mass or stone visualized. Gallbladder: Demonstrates no wall thickening or pericholecystic fluid. No stones visualized. Pancreas: Not well visualized. Right Kidney: Not visualized. Other: None. CONCLUSION: 1. Limited examination. 2. No definitive sonographic evidence for cholelithiasis or acute cholecystitis. 3. Numerous hepatic cysts similar to previous exams and consistent with polycystic disease. Electronically signed by: Enrique Quinn MD 05/20/2018 4:59 PM EST
--- NOTE | 2018-05-20 18:09 | MR ---
EXAM DATE: 05/20/2018 5:57 PM EST AGE/SEX: 72 years / Male INDICATIONS: Abdominal pain. CLINICAL DATA: This is the patient's initial encounter. Patient reports that signs and symptoms have been present for 2 days and indicates a pain score of 3/10. MEDICAL/SURGICAL HISTORY: Renal insufficiency, chronic. Hypertension. Macular degeneration. U mbilical hernia repair. Colon polyps removed. [place] [facility] [place] 05/20/2018. . TECHNIQUE: Multiplanar, multisequence images of the abdomen were obtained without contrast including dedicated cholangiographic images. FINDINGS: Liver: Too numerous to count simple hepatic cysts measuring between 0.5 and 7.5 cm. Liver measures 2 6 cm craniocaudal. No intrahepatic ductal dilatation demonstrated. Intrahepatic Bile Ducts: There is no intrahepatic biliary ductal dilatation. Common Bile Duct: The common bile duct measures 6 mm and is of uniform caliber. No filling defects o r obstructing lesions are identified. Gallbladder: The gallbladder is normal with no evidence for cholelithiasis, gallbladder wall thicken ing, or pericholecystic fluid. Pancreas: The pancreas appears normal in signal with no focal parenchymal abnormalities. The pancrea tic duct is normal in caliber with no filling defects, or obstructing lesions identified. Enlarged kidneys with innumerable cysts. CONCLUSION: 1. Findings consistent with autosomal dominant polycystic kidney disease with innumerable hepatic an d renal cysts present. Liver and kidneys are enlarged. 2. No acute findings seen. No gallbladder wall thickening demonstrated. No stones or evidence of chuy dottie obstruction. Electronically signed by: Jamir Macario MD 05/20/2018 6:08 PM EST
[2018-05-20] MEDS: Temazepam 15 MG Capsule PO PRN (23:46)
[2018-05-21] MEDS: Sod Chloride 0.9% Inj 1,000 ML IV.CONT SCH ×2 (05:34→13:59)
[2018-05-21 06:49] LABS: Baso % (Auto) 0.2 % (0.0-2.0); Eos # (Auto) 0.1 th/mm3 (0.0-0.4); Eos % (Auto) 1.6 % (0.0-4.0); Hematocrit 26.2 % (39.0-51.0); Hemoglobin 8.9 gm/dL (13.0-17.0); Lymph # (Auto) 0.6 th/mm3 (1.0-4.8); Lymph % (Auto) 7.2 % (9.0-44.0); Mean Corpuscular HGB Conc 34.1 % (32.0-36.0); Mean Corpuscular Hemoglobin 36.1 pg (27.0-34.0); Mean Corpuscular Volume 106.1 fL (80.0-100.0); Mean Platelet Volume 7.7 fL (7.0-11.0); Mono # (Auto) 1.2 th/mm3 (0.0-0.9); Mono % (Auto) 14.9 % (0.0-8.0); Neut # (Auto) 6.2 th/mm3 (1.8-7.7); Neut % (Auto) 76.1 % (16.0-70.0); Platelet Count 180 th/mm3 (150-450); Red Blood Count 2.47 mil/mm3 (4.50-5.90); Red Cell Distribution Width 14.2 % (11.6-17.2); White Blood Count 8.2 th/mm3 (4.0-11.0)
[2018-05-21 07:17] LABS: Albumin 2.7 g/dL (3.4-5.0); Anion Gap 11 meq/L (5-15); Aspartate Aminotransferase 17 U/L (15-37); Blood Urea Nitrogen 75 mg/dL (7-18); Calcium 7.8 mg/dL (8.5-10.1); Chloride 110 meq/L (98-107); Glomerular Filtration Rate 12 mL/min (>89); Glucose,Random 87 mg/dL (74-106); Potassium 4.4 meq/L (3.5-5.1); Sodium 140 meq/L (136-145)
[2018-05-21 07:44] LABS: Alanine Aminotransferase 28 U/L (12-78); Alkaline Phosphatase 89 U/L (45-117); Folate 8.8 ng/mL (3.1-17.5); Total Protein 6.2 g/dL (6.4-8.2); Vitamin B12 477 pg/mL (193-986)
--- NOTE | 2018-05-21 08:40 | P.PNIM ---
Subjective Interval history: Right upper quadrant pain about the same - patient reports he was practicing a new type of golf swing two days before the pain started Physical Exam Vital signs: Last Vital Signs Temp 98.0 F 05/21/18 04:00 Pulse 83 05/21/18 06:43 Resp 16 05/21/18 04:00 BP 146/62 H 05/21/18 04:00 Pulse Ox 94 L 05/21/18 04:00 Narrative: GENERAL: This is a well-nourished, well-developed patient, in no apparent distress. CARDIOVASCULAR: Regular rate and rhythm RESPIRATORY: Clear to auscultation. Breath sounds equal bilaterally. No wheezes , rales, or rhonchi. GASTROINTESTINAL: Abdomen soft, tender RUQ area, moderate distention. Normal active bowel sounds MUSCULOSKELETAL: Extremities without clubbing, cyanosis, or edema. NEURO: Alert & Oriented x4 to person, place, time, situation. Moves all ext x4 Results Labs CBC & Chem 7: 05/21/18 06:05 05/21/18 06:05 Assessment and Plan Assessment (1) Acute kidney injury superimposed on chronic kidney disease: Code(s): N17.9 - Acute kidney failure, unspecified; N18.9 - Chronic kidney disease, unspecified Status: Acute (2) Polycystic kidney disease: Code(s): Q61.3 - Polycystic kidney, unspecified Status: Acute (3) Hypokalemia: Code(s): E87.6 - Hypokalemia Status: Acute (4) Diverticulitis: Code(s): K57.92 - Diverticulitis of intestine, part unspecified, without perforation or abscess without bleeding Status: Acute Plan This is a 72-year-old male With a past medical history which includes chronic kidney disease stage IV, gout, arthritis, BPH and hypertension. Patient came to the emergency room yesterday with history of lower abdominal x 3-4 day. Patient describes bilateral lower abdominal pain as a constant dull ache since Monday. Patient also reports T-max at home 102, chills, mild nausea and lack of appetite. Patient denies bright red bleeding per rectum. Patient does report black stools but reports his stools are typically black as he takes iron supplementation. Patient denies vomiting chest pain shortness of breath. Patient primarily lives in [place] does have a home here in [place] and reports he comes down and stays for a few months every year. Patient has a his primary injection wax molder in [place] does not follow with a local injection wax molder. Patient reports he is chronic kidney disease stage IV he believes his GFR is normally around 14 and in fact is waiting for an AV fistula in [place]. SAMMI - Patient has a his primary injection wax molder in [place] does not follow with a local injection wax molder. Patient reports he is chronic kidney disease stage IV he believes his GFR is normally around 14 and in fact is waiting for an AV fistula in [place]. - baseline CKD stage 4 with creatinine 3.26 (05/23/17) to 3.43 (08/11/17) - renal function on admission BUN 92, creatinine 5.92 and estimated GFR 9 - renal function on 05/19 BUN 84, creatinine 5.33 and estimated GFR 11 - renal function on 05/20 BUN 84, creatinine 5.26 and estimated GFR 11 - renal function on 05/21 BUN 75, creatinine 4.76 and estimated GFR 12 - IVF - consult to nephrology, appreciate input Abdominal pain Diverticulitis Abdomen/Pelvis CT 05/19/18 1. Polycystic kidney and liver disease with marked enlargement of the viscera. 2. No acute findings. Colonic diverticulosis. patient given cipro 500 mg and Flagyl x1 in the ER for possible diverticulitis WBC 11.6 Will continue Levaquin 250 mg Q48H and Flagyl 500mg Q8H 06/29 blood culture bottle growing E coli WBC trending down, fever improving continue abx and continue to monitor possible GI source possible infected liver/kidney cyst RUQ pain Cholangiopancreatography MRI 05/20/18 1. Findings consistent with autosomal dominant polycystic kidney disease with innumerable hepatic and renal cysts present. Liver and kidneys are enlarged. 2. No acute findings seen. No gallbladder wall thickening demonstrated. No stones or evidence of ductal obstruction. Gallbladder Ultrasound 05/20/18 1. Limited examination. 2. No definitive sonographic evidence for cholelithiasis or acute cholecystitis. 3. Numerous hepatic cysts similar to previous exams and consistent with polycystic disease. Roxicodone 10 mg Q4H PRN with Morphine 4 mg IV for breakthrough pain add flexeril Anemia, macrocytic - likely multifactorial on admission hgb 10.2 -> 9.0 (05/19) -> 8.8 (05/20) -> 8.9 (05/21) partially dilutional patient on continuous IV fluids patient also have polocytic liver and kidney disease B12 477 and Folate 8.8 continue protonix IV BID consult GI, plan for EGD in AM NPO after midnight Hyperkalemia On admission patient's potassium was 5.9 -> 4.8 (05/19) -> 4.6 (05/20) Patient given calcium gluconate, D50 and insulin in the emergency department DC Kayexalate continuous telemetry recheck BMP in AM HTN Hold home Furosemide 40 mg daily, irbesartan 150 mg daily due to renal function monitor renal function Constipation - resolved continue stool softeners laxative as needed DVT Prophylaxis with SCDs Progress Note: Quality VTE Deep Vein Thrombosis/Pulmonary Embolism Present on Admission: No
[2018-05-21] MEDS: Allopurinol 100 MG Tablet PO SCH (10:26)
[2018-05-21] MEDS: Pantoprazole Inj 40 MG Vial IV.PUSH SCH ×2 (10:26→22:01)
[2018-05-21] MEDS: Ferrous Sulfate 325 MG Tablet PO SCH (10:26)
--- NOTE | 2018-05-21 12:53 | P.CONGI ---
History of Present Illness Consult date: 05/21/18 Consult reason: Anemia with black tarry stools Right upper quadrant pain Chief complaint: acute renal failure, abdominal pain, hyperkalemia History of Present Illness: Patient is a 72-year-old male with past medical history significant for chronic kidney disease stage IV, gout, arthritis, BPH and hypertension. Surgical history significant for hernia repair and vasectomy. Patient presented to the emergency room with complaint of lower abdominal pain for 3-4 days with fever chills mild nausea and decreased appetite. Patient denies any bright red bleeding per rectum but does report black stools. Of note patient states that he takes an iron supplement daily and stools are normally soft, dark brown in color with daily bowel movements. Patient denies any nausea vomiting, chest pain, shortness of breath, or dizziness. Upon consultation, patient reports that he has been having right upper quadrant abdominal pain for 5 days. Patient describes pain as sharp and intermittent, states it is aggravated by certain movements such as turning from side to side. Patient denies any nausea vomiting. Patient states he has never had an EGD, last colonoscopy done 04/18/2018 which showed diverticulosis with benign polyps per patient. Patient is a resident in [place] and states that colonoscopy was done there. Patient denies any use of aspirin or NSAIDs. Patient does endorse drinking 1-2 alcoholic drinks daily with occasional beer and denies any use of tobacco products, states he stopped smoking cigars 1 year ago. Patient states family history significant for 2 sisters having colostomies. Patient states he is not sure of the exact disorder leading up to the need for colostomies. States his father underwent colon resection for cancer and mom had history of diverticulitis. Patient denies heartburn, difficulty swallowing, painful swallowing or unintended weight loss. Our service has been consulted to evaluate patient for anemia with black tarry stools and right upper quadrant pain. <Mariella Medel - Last Filed: 05/21/18 12:39> Review of Systems All other systems reviewed negative except as stated in HPI <Mariella Medel - Last Filed: 05/21/18 12:39> PMFSH - History History Provided By: Patient - Medical History Medical History: Medical History (Last Reviewed 05/19/18 @ 13:41 by Saruav Lee MD) CKD (chronic kidney disease) Gout Hypertension Liver cyst Low iron Macular degeneration - Surgical History Surgical History: Surgical History (Last Reviewed 05/19/18 @ 13:41 by Saurav Lee MD) H/O umbilical hernia repair S/P colonoscopic polypectomy - Tobacco History Second Hand Smoke Exposure: No Tobacco Use In Past 30 Days: No Smoking Status: Never smoker - Alcohol History How Often Do You Have a Drink Containing Alcohol: 4 or more times a week - Substance Use History Substance History: No History of Abuse - Travel History Recent Travel in the [place] Within the Last 8 Weeks: No Recent Travel Out of the Country Within the Last 8 Weeks: No - Immunization History Tetanus Immunization: Unsure Hx Influenza Vaccine This Season: No <Mariella Medel - Last Filed: 05/21/18 12:39> - Medical History Medical History: Medical History (Last Reviewed 05/19/18 @ 13:41 by Saurav Lee MD) CKD (chronic kidney disease) Gout Hypertension Liver cyst Low iron Macular degeneration - Surgical History Surgical History: Surgical History (Last Reviewed 05/19/18 @ 13:41 by Saurav Lee MD) H/O umbilical hernia repair S/P colonoscopic polypectomy <Tessa Kasper - Last Filed: 05/21/18 18:54> Medications and Allergies Active Medications: Active Medications Acetaminophen (Tylenol) 650 mg PO Q4H PRN PRN Reason: Temp > 100.4 Al Hydroxide/Mg Hydroxide (Milk Of Vanessa Liq) 30 ml PO Q12H PRN PRN Reason: Mild Constipation Allopurinol (Zyloprim) 100 mg PO DAILY [facility] Last Admin: 05/21/18 10:26 Dose: 100 mg Bisacodyl (Dulcolax Supp) 10 mg RECTAL DAILY PRN PRN Reason: SEVERE CONSITIPATION Cyclobenzaprine HCl (Flexeril) 5 mg PO Q8HR [facility] Stop: 05/22/18 23:59 Ferrous Sulfate (Ferosul) 325 mg PO DAILY [facility] Last Admin: 05/21/18 10:26 Dose: 325 mg Sodium Chloride (Ns Inj) 1,000 mls @ 70 mls/hr IV.CONT .[id number] [facility] Last Admin: 05/21/18 05:34 Dose: 70 mls/hr Levofloxacin/Dextrose (Levaquin 250 Mg Premix Inj) 250 mg in 50 mls @ 50 mls/ hr IV.SIG Q48H [facility] Last Infusion: 05/20/18 13:01 Dose: Infused Metronidazole/Sodium Chloride (Flagyl 500 Mg Inj) 100 mls @ 100 mls/hr IV.SIG Q8H [facility] Last Infusion: 05/21/18 06:34 Dose: Infused Lactulose (Lactulose Liq) 30 ml PO DAILY PRN PRN Reason: SEVERE CONSITIPATION Miscellaneous (Pill Splitter) 1 each OTHER [facility] Morphine Sulfate (Morphine Inj) 4 mg IV.PUSH Q4H PRN PRN Reason: BREAKTHROUGH PAIN Nifedipine (Procardia Xl) 30 mg PO DAILY [facility] Last Admin: 05/21/18 10:26 Dose: 30 mg Oxycodone HCl (Roxicodone) 10 mg PO Q4H PRN PRN Reason: PAIN SCALE 1 TO 10 Last Admin: 05/21/18 10:30 Dose: 10 mg Pantoprazole Sodium (Protonix Inj) 40 mg IV.PUSH Q12HR [facility] Last Admin: 05/21/18 10:26 Dose: 40 mg Sennosides (Senokot) 17.2 mg PO Q12H PRN PRN Reason: Moderate Constipation Sodium Chloride (Ns Flush) 2 ml IV.FLUSH PRN PRN PRN Reason: FLUSH AFTER USING IV ACCESS Temazepam (Restoril) 15 mg PO HS PRN PRN Reason: INSOMNIA Last Admin: 05/20/18 23:46 Dose: 15 mg <Mariella Medel - Last Filed: 05/21/18 12:39> Active Medications: Active Medications Acetaminophen (Tylenol) 650 mg PO Q4H PRN PRN Reason: Temp > 100.4 Al Hydroxide/Mg Hydroxide (Milk Of Magnesia Liq) 30 ml PO Q12H PRN PRN Reason: Mild Constipation Allopurinol (Zyloprim) 100 mg PO DAILY [facility] Last Admin: 05/21/18 10:26 Dose: 100 mg Bisacodyl (Dulcolax Supp) 10 mg RECTAL DAILY PRN PRN Reason: SEVERE CONSITIPATION Cyclobenzaprine HCl (Flexeril) 5 mg PO Q8HR [facility] Stop: 05/22/18 23:59 Last Admin: 05/21/18 13:57 Dose: 5 mg Ferrous Sulfate (Ferosul) 325 mg PO DAILY [facility] Last Admin: 05/21/18 10:26 Dose: 325 mg Sodium Chloride (Ns Inj) 1,000 mls @ 70 mls/hr IV.CONT .[id number] [facility] Last Admin: 05/21/18 13:59 Dose: 70 mls/hr Levofloxacin/Dextrose (Levaquin 250 Mg Premix Inj) 250 mg in 50 mls @ 50 mls/ hr IV.SIG Q48H [facility] Last Infusion: 05/20/18 13:01 Dose: Infused Metronidazole/Sodium Chloride (Flagyl 500 Mg Inj) 100 mls @ 100 mls/hr IV.SIG Q8H [facility] Last Admin: 05/21/18 13:00 Dose: 100 mls/hr Lactulose (Lactulose Liq) 30 ml PO DAILY PRN PRN Reason: SEVERE CONSITIPATION Miscellaneous (Pill Splitter) 1 each OTHER [facility] Morphine Sulfate (Morphine Inj) 4 mg IV.PUSH Q4H PRN PRN Reason: BREAKTHROUGH PAIN Nifedipine (Procardia Xl) 30 mg PO DAILY [facility] Last Admin: 05/21/18 10:26 Dose: 30 mg Oxycodone HCl (Roxicodone) 10 mg PO Q4H PRN PRN Reason: PAIN SCALE 1 TO 10 Last Admin: 05/21/18 10:30 Dose: 10 mg Pantoprazole Sodium (Protonix Inj) 40 mg IV.PUSH Q12HR [facility] Last Admin: 05/21/18 10:26 Dose: 40 mg Sennosides (Senokot) 17.2 mg PO Q12H PRN PRN Reason: Moderate Constipation Sodium Chloride (Ns Flush) 2 ml IV.FLUSH PRN PRN PRN Reason: FLUSH AFTER USING IV ACCESS Temazepam (Restoril) 15 mg PO HS PRN PRN Reason: INSOMNIA Last Admin: 05/20/18 23:46 Dose: 15 mg <Tessa Kasper A - Last Filed: 05/21/18 18:54> Allergies Allergy/AdvReac Type Severity Reaction Status Date / Time No Known Allergies Allergy Verified 05/19/18 00:20 Home Medications Medication Instructions Recorded Confirmed Type Zopiclone 7 mg PO HS 05/19/18 History allopurinol 100 mg PO DAILY 05/19/18 05/19/18 History ferrous fumarate 600 mg PO HS 05/19/18 05/19/18 History furosemide 40 mg PO DAILY 05/19/18 05/19/18 History irbesartan 150 mg PO DAILY 05/19/18 05/19/18 History nifedipine 30 mg PO QAM 05/19/18 05/19/18 History Exam Vital signs: Vital Signs 05/20/18 16:00 05/20/18 17:30 05/20/18 20:00 Temperature 97.7 F 98.0 F Pulse Rate 81 72 Respiratory Rate 16 18 Blood Pressure 116/59 L 139/60 Pulse Oximetry 96 95 97 05/21/18 00:00 05/21/18 04:00 05/21/18 06:43 Temperature 98.2 F 98.0 F Pulse Rate 75 82 83 Respiratory Rate 17 16 Blood Pressure 143/65 H 146/62 H Pulse Oximetry 96 94 L 05/21/18 07:45 05/21/18 10:48 Temperature 98.8 F Pulse Rate 81 Respiratory Rate 16 Blood Pressure 135/68 Pulse Oximetry 95 95 Intake & Output 05/20/18 05/21/18 05/21/18 18:59 06:59 18:59 Intake Total 2029 1200 / 1200 Balance 2029 1200 / 1200 Weight 99.4 kg Intake: IV 1150 / 1150 1200 / 1200 NS Inj 1,000 ML @ 70 mls/hr IV. 1000 / 1000 1000 / 1000 CONT .[id number] [facility] Rx#:[id number] Levaquin 250 mg Premix Inj 250 50 / 50 mg In 50 ml @ 50 mls/hr IV.SIG Q48H [facility] Rx#:[id number] Flagyl 500 MG Inj 100 ML @ 100 100 / 100 200 / 200 mls/hr IV.SIG Q8H [facility] Rx#: [id number] Oral 880 / 880 Other: # Voids 3 4 Date of Last Bowel Movement 05/20/18 05/20/18 - Constitutional no acute distress - Routine HEENT Exam Head: Present: normocephalic - Routine Respiratory Exam Present: CTA bilaterally. Absent: accessory muscle use - Routine Cardiovascular Exam Present: RRR - Routine Abdominal Exam Present: soft, normoactive bowel sounds, distended, guarding, firm. Absent: tenderness Comments: Obese abdomen noted on exam Patient states no change from usual shape - Routine Extremities Exam Absent: edema - Routine Skin Exam Present: dry, warm - Routine Neurological Exam Present: alert - Routine Psychiatric Exam Present: normal affect, cooperative <Mariella Medel - Last Filed: 05/21/18 12:39> Vital signs: Vital Signs 05/20/18 20:00 05/21/18 00:00 05/21/18 04:00 Temperature 98.0 F 98.2 F 98.0 F Pulse Rate 72 75 82 Respiratory Rate 18 17 16 Blood Pressure 139/60 143/65 H 146/62 H Pulse Oximetry 97 96 94 L 05/21/18 06:43 05/21/18 07:45 05/21/18 10:48 Temperature 98.8 F Pulse Rate 83 81 Respiratory Rate 16 Blood Pressure 135/68 Pulse Oximetry 95 95 05/21/18 11:45 05/21/18 15:45 Temperature 97.7 F 97.3 F L Pulse Rate 78 75 Respiratory Rate 16 16 Blood Pressure 122/65 126/64 Pulse Oximetry 93 L 96 Intake & Output 05/20/18 05/21/18 05/21/18 18:59 06:59 18:59 Intake Total 2029 1200 / 1200 1000 / 1000 Balance 2029 1200 / 1200 1000 / 1000 Weight 99.4 kg Intake: IV 1150 / 1150 1200 / 1200 1000 / 1000 NS Inj 1,000 ML @ 70 mls/hr IV. 1000 / 1000 1000 / 1000 1000 / 1000 CONT .[id number] [facility] Rx#:[id number] Levaquin 250 mg Premix Inj 250 50 / 50 mg In 50 ml @ 50 mls/hr IV.SIG Q48H [facility] Rx#:[id number] Flagyl 500 MG Inj 100 ML @ 100 100 / 100 200 / 200 mls/hr IV.SIG Q8H [facility] Rx#: [id number] Oral 880 / 880 Other: # Voids 3 4 Date of Last Bowel Movement 05/20/18 05/20/18 05/20/18 <Tessa Kasper - Last Filed: 05/21/18 18:54> Results - Labs CBC & Chem 7: 05/21/18 06:05 05/21/18 06:05 Labs: Laboratory Results - last 24 hr 05/21/18 05/21/18 06:05 06:05 WBC 8.2 RBC 2.47 L Hgb 8.9 L Hct 26.2 L MCV 106.1 H MCH 36.1 H MCHC 34.1 RDW 14.2 Plt Count 180 MPV 7.7 Neut % (Auto) 76.1 H Lymph % (Auto) 7.2 L Charlotte % (Auto) 14.9 H Eos % (Auto) 1.6 Baso % (Auto) 0.2 Neut # (Auto) 6.2 Lymph # (Auto) 0.6 L [place] # (Auto) 1.2 H Eos # (Auto) 0.1 Baso # (Auto) 0.0 WBC Differential . Differential Comment Auto diff final Sodium 140 Potassium 4.4 Chloride 110 H Carbon Dioxide 19.0 L Anion Gap 11 BUN 75 H Creatinine 4.76 H Estimated GFR 12 L Random Glucose 87 Calcium 7.8 L Total Bilirubin 0.3 AST 17 ALT 28 Alkaline Phosphatase 89 Total Protein 6.2 L D Albumin 2.7 L Vitamin B12 477 Folate 8.8 - Imaging Impressions Cholangiopancreatography MRI 05/20/18 00:00 CONCLUSION: 1. Findings consistent with autosomal dominant polycystic kidney disease with innumerable hepatic and renal cysts present. Liver and kidneys are enlarged. 2. No acute findings seen. No gallbladder wall thickening demonstrated. No stones or evidence of ductal obstruction. Gallbladder Ultrasound 05/20/18 00:00 CONCLUSION: 1. Limited examination. 2. No definitive sonographic evidence for cholelithiasis or acute cholecystitis. 3. Numerous hepatic cysts similar to previous exams and consistent with polycystic disease. <Mariella Medel - Last Filed: 05/21/18 12:39> - Labs CBC & Chem 7: 05/21/18 06:05 05/21/18 06:05 Labs: Laboratory Results - last 24 hr 05/21/18 05/21/18 06:05 06:05 WBC 8.2 RBC 2.47 L Hgb 8.9 L Hct 26.2 L MCV 106.1 H MCH 36.1 H MCHC 34.1 RDW 14.2 Plt Count 180 MPV 7.7 Neut % (Auto) 76.1 H Lymph % (Auto) 7.2 L [place] % (Auto) 14.9 H Eos % (Auto) 1.6 Baso % (Auto) 0.2 Neut # (Auto) 6.2 Lymph # (Auto) 0.6 L [place] # (Auto) 1.2 H Eos # (Auto) 0.1 Baso # (Auto) 0.0 WBC Differential . Differential Comment Auto diff final Sodium 140 Potassium 4.4 Chloride 110 H Carbon Dioxide 19.0 L Anion Gap 11 BUN 75 H Creatinine 4.76 H Estimated GFR 12 L Random Glucose 87 Calcium 7.8 L Total Bilirubin 0.3 AST 17 ALT 28 Alkaline Phosphatase 89 Total Protein 6.2 L D Albumin 2.7 L Vitamin B12 477 Folate 8.8 <Tessa Kasper - Last Filed: 05/21/18 18:54> Assessment and Plan (1) Black tarry stools Status: Acute Code(s): K92.1 - Melena (2) Anemia Status: Acute Code(s): D64.9 - Anemia, unspecified - Plan Patient is a 72-year-old male with past medical history significant for chronic kidney disease stage IV, gout, arthritis, BPH and hypertension. Surgical history significant for hernia repair and vasectomy. Patient presented to the emergency room with complaint of lower abdominal pain for 3-4 days with fever chills mild nausea and decreased appetite. Patient denies any bright red bleeding per rectum but does report black stools. Of note patient states that he takes an iron supplement daily and stools are normally soft, dark brown in color with daily bowel movements. Patient denies any nausea vomiting, chest pain, shortness of breath, or dizziness. Upon consultation, patient reports that he has been having right upper quadrant abdominal pain for 5 days. Patient describes pain as sharp and intermittent, states it is aggravated by certain movements such as turning from side to side. Patient denies any nausea vomiting. Patient states he has never had an EGD, last colonoscopy done 04/18/2018 which showed diverticulosis with benign polyps per patient. Patient is a resident in [place] and states that colonoscopy was done there. Patient denies any use of aspirin or NSAIDs. Patient does endorse drinking 1-2 alcoholic drinks daily with occasional beer and denies any use of tobacco products, states he stopped smoking cigars 1 year ago. Patient states family history significant for 2 sisters having colostomies. Patient states he is not sure of the exact disorder leading up to the need for colostomies. States his father underwent colon resection for cancer and mom had history of diverticulitis. Patient denies heartburn, difficulty swallowing, painful swallowing or unintended weight loss. Our service has been consulted to evaluate patient for anemia with black tarry stools and right upper quadrant pain. Anemia Black tarry stools Right upper quadrant pain Patient presented to [facility] with complaint of right upper quadrant pain for 5 days. Denies any nausea or vomiting. States pain increases and is aggravated by certain movements such as turning from side to side. Reports black tarry stools, of note: Patient takes iron supplement daily. Denies ever having had an EGD. Last colonoscopy done March 2018-- diverticulosis with benign polyps per patient recollection. 05/21/2018 hemoglobin 8.9 hematocrit 26.2 total bilirubin 0.3 AST 17 ALT 28 alk phos 89. Plan -Renal diet as tolerated -N.p.o. after midnight -Obtain consent for EGD -Monitor patient for bleeding -Monitor hemoglobin and hematocrit -Transfuse if needed -Continue IV antibiotics -Antiemetics and analgesics as per attending -Bowel regimen -Pantoprazole 40 mg IV every 12 -Supportive care -Further recommendations to follow This patient has been seen by myself and Dr. Kasper and this note is written on his behalf - Attending Attestation Dr. Kasper <Mariella Medel - Last Filed: 05/21/18 12:39> (1) Black tarry stools Status: Acute Code(s): K92.1 - Melena (2) Anemia Status: Acute Code(s): D64.9 - Anemia, unspecified - Attending Attestation Seen and examined. Will schedule EGD in AM. Further recommendations to follow pending findings. Thank you for the consult. <Tessa Kasper - Last Filed: 05/21/18 18:54>
--- NOTE | 2018-05-21 17:04 | P.PNNP ---
Subjective Interval history: Patient complaining of right-sided abdominal pain not resolved he has a small bowel movement, seen by GI Physical Exam Vital signs: Vital Signs 05/20/18 17:30 05/20/18 20:00 05/21/18 00:00 Temperature 98.0 F 98.2 F Pulse Rate 72 75 Respiratory Rate 18 17 Blood Pressure 139/60 143/65 H Pulse Oximetry 95 97 96 05/21/18 04:00 05/21/18 06:43 05/21/18 07:45 Temperature 98.0 F 98.8 F Pulse Rate 82 83 81 Respiratory Rate 16 16 Blood Pressure 146/62 H 135/68 Pulse Oximetry 94 L 95 05/21/18 10:48 05/21/18 11:45 Temperature 97.7 F Pulse Rate 78 Respiratory Rate 16 Blood Pressure 122/65 Pulse Oximetry 95 93 L Intake & Output 05/20/18 05/21/18 05/21/18 18:59 06:59 18:59 Intake Total 2029 1200 / 1200 1000 / 1000 Balance 2029 1200 / 1200 1000 / 1000 Weight 99.4 kg Intake: IV 1150 / 1150 1200 / 1200 1000 / 1000 NS Inj 1,000 ML @ 70 mls/hr IV. 1000 / 1000 1000 / 1000 1000 / 1000 CONT .[id number] [facility] Rx#:[id number] Levaquin 250 mg Premix Inj 250 50 / 50 mg In 50 ml @ 50 mls/hr IV.SIG Q48H [facility] Rx#:[id number] Flagyl 500 MG Inj 100 ML @ 100 100 / 100 200 / 200 mls/hr IV.SIG Q8H [facility] Rx#: [id number] Oral 880 / 880 Other: # Voids 3 4 Date of Last Bowel Movement 05/20/18 05/20/18 05/20/18 Narrative: GENERAL: Well-nourished, well-developed patient. SKIN: Warm and dry. HEAD: Normocephalic. EYES: No scleral icterus. No injection or drainage. NECK: Supple, trachea midline. No JVD or lymphadenopathy. CARDIOVASCULAR: Regular rate and rhythm without murmurs, gallops, or rubs. RESPIRATORY: Breath sounds equal bilaterally. No accessory muscle use. GASTROINTESTINAL: Abdomen distended mild tenderness on the right side bowel sounds present EXTREMITIES: No edema NEUROLOGICAL: Awake, alert, and oriented x 3. Non-focal. Assessment and Plan - Assessment (1) Acute kidney injury superimposed on chronic kidney disease Code(s): N17.9 - Acute kidney failure, unspecified; N18.9 - Chronic kidney disease, unspecified Status: Acute (2) Polycystic kidney disease Code(s): Q61.3 - Polycystic kidney, unspecified Status: Acute (3) Hypokalemia Code(s): E87.6 - Hypokalemia Status: Acute (4) Diverticulitis Code(s): K57.92 - Diverticulitis of intestine, part unspecified, without perforation or abscess without bleeding Status: Acute - Plan Patient has E. coli and blood likely urinary tract infection most likely has infected cyst he is on Levaquin continue to monitor for improvement Potassium in normal range Creatinine 4.7 declined Discussed MRI did not reveal any source other than polycystic liver and kidney disease GI following for low hemoglobin planning to do endoscopy
[2018-05-21] MEDS: Temazepam 15 MG Capsule PO PRN (22:03)
[2018-05-22] MEDS: Sod Chloride 0.9% Inj 1,000 ML IV.CONT SCH (04:55)
[2018-05-22] MEDS ORDERED: Chlorhexidine Gluconate 2% 1 Pack (2 Cloths) TOPICAL ONE (05:58)
[2018-05-22] MEDS ORDERED: Metoprolol Tartrate 25 MG Tablet PO ONE (05:58)
[2018-05-22] MEDS ORDERED: Sodium Chlor 0.9% Inj 500 ML IV.SIG SCH (06:00)
[2018-05-22 06:03] LABS: Calcium 7.9 mg/dL (8.5-10.1); Carbon Dioxide 19.6 meq/L (21.0-32.0); Potassium 4.5 meq/L (3.5-5.1)
--- NOTE | 2018-05-22 10:01 | GIPROC ---
[facility] [address] [facility]. [facility], [address] EGD PROCEDURE REPORT EXAM DATE: 05/22/2018 PATIENT NAME: Dm Love MR #: [id number] BIRTHDATE: 1945 ATTENDING: Tessa Kasper MD ORDER #: [id number] [employer]ING SCALER: Yisel Love and Crissy Chappell STATUS: inpatient INDICATIONS: The patient is a 72 yr old male here for an EGD due to occult blood positive PROCEDURE PERFORMED: EGD w/ biopsy MEDICATIONS: Per Anesthesia and None. TOPICAL ANESTHETIC: none CONSENT: The patient understands the risks and benefits of the procedure and understands that these risks include, but are not limited to: sedation, allergic reaction, infection, perforation and/or bleeding. Alternative means of evaluation and treatment include, among others: physical exam, x-rays, and/or surgical intervention. The patient elects to proceed with this endoscopic procedure. medical equipment was checked for proper function. Hand hygiene and appropriate measures for infection prevention was taken. After the risks, benefits and alternatives of the procedure were thoroughly explained, Informed consent was verified, confirmed and timeout was successfully executed by the treatment team. The patient was anesthetized with topical anesthesia and the Pentax [id number] endoscope was introduced through the mouth and advanced to the second portion of the duodenum. Retroflexion was performed and was normal The gastroscope was then slowly withdrawn and removed. ESOPHAGUS: The mucosa of the esophagus appeared normal. STOMACH: There was mild gastritis in the gastric antrum. Multiple biopsies were performed using cold forceps. Sample sent for histology. DUODENUM: The duodenal mucosa appeared normal. ADVERSE EVENTS: There were no complications. IMPRESSIONS: 1. The esophagus appeared normal 2. There was mild gastritis in the gastric antrum; multiple biopsies were performed 3. Normal duodenal mucosa 4. Retroflexion was performed and was normal RECOMMENDATIONS: 1. Await biopsy results. Biopsy results will not be ready for 7-10 days. If you don't hear from us in two weeks, call our office for biopsy results. 2. Continue PPI PATIENT CONDITION: stable DISPOSITION: Observation REPEAT EXAM: NONE Tessa Kasper MD eSigned: Tessa Kasper MD 05/22/2018 10:00 AM cc: PATIENT NAME: Dm Love MR#: [id number]
[2018-05-22] MEDS ORDERED: MethylPREDNISolone Sod Succinate Inj 125 MG/2 ML Vial IV.PUSH ONE (11:13)
--- NOTE | 2018-05-22 11:16 | P.PNIM ---
Subjective Interval history: Patient seen S/P EGD c/o, "gout," pain in his right great toe reports RUQ pain better after Flexeril but still present Physical Exam Vital signs: Last Vital Signs Temp 97.6 F 05/22/18 10:14 Pulse 70 05/22/18 10:14 Resp 18 05/22/18 10:14 BP 105/65 05/22/18 10:14 Pulse Ox 90 L 05/22/18 10:14 Narrative: GENERAL: This is a well-nourished, well-developed patient, in no apparent distress. CARDIOVASCULAR: Regular rate and rhythm RESPIRATORY: Clear to auscultation. Breath sounds equal bilaterally. No wheezes , rales, or rhonchi. GASTROINTESTINAL: Abdomen soft, mild tenderness RUQ area, moderate distention. Normal active bowel sounds MUSCULOSKELETAL: Extremities without clubbing, cyanosis, or edema. right great toe mild erythema and tenderness NEURO: Alert & Oriented x4 to person, place, time, situation. Moves all ext x4 Results Labs CBC & Chem 7: 05/21/18 06:05 05/22/18 05:07 Assessment and Plan Assessment (1) Acute kidney injury superimposed on chronic kidney disease: Code(s): N17.9 - Acute kidney failure, unspecified; N18.9 - Chronic kidney disease, unspecified Status: Acute (2) Polycystic kidney disease: Code(s): Q61.3 - Polycystic kidney, unspecified Status: Acute (3) Hypokalemia: Code(s): E87.6 - Hypokalemia Status: Acute (4) Diverticulitis: Code(s): K57.92 - Diverticulitis of intestine, part unspecified, without perforation or abscess without bleeding Status: Acute Plan This is a 72-year-old male With a past medical history which includes chronic kidney disease stage IV, gout, arthritis, BPH and hypertension. Patient came to the emergency room yesterday with history of lower abdominal x 3-4 day. Patient describes bilateral lower abdominal pain as a constant dull ache since Monday. Patient also reports T-max at home 102, chills, mild nausea and lack of appetite. Patient denies bright red bleeding per rectum. Patient does report black stools but reports his stools are typically black as he takes iron supplementation. Patient denies vomiting chest pain shortness of breath. Patient primarily lives in [place] does have a home here in [place] and reports he comes down and stays for a few months every year. Patient has a his primary machine welder in [place] does not follow with a local machine welder. Patient reports he is chronic kidney disease stage IV he believes his GFR is normally around 14 and in fact is waiting for an AV fistula in [place]. SAMMI - Patient has a his primary machine welder in [place] does not follow with a local machine welder. Patient reports he is chronic kidney disease stage IV he believes his GFR is normally around 14 and in fact is waiting for an AV fistula in [place]. - baseline CKD stage 4 with creatinine 3.26 (05/23/17) to 3.43 (08/11/17) - renal function on admission BUN 92, creatinine 5.92 and estimated GFR 9 - renal function on 05/19 BUN 84, creatinine 5.33 and estimated GFR 11 - renal function on 05/20 BUN 84, creatinine 5.26 and estimated GFR 11 - renal function on 05/21 BUN 75, creatinine 4.76 and estimated GFR 12 - renal function on 05/22 BUN 68, creatinine 4.32 and estimated GFR 14 - DC IVF - consult to nephrology, appreciate input Abdominal pain Diverticulitis Abdomen/Pelvis CT 05/19/18 1. Polycystic kidney and liver disease with marked enlargement of the viscera. 2. No acute findings. Colonic diverticulosis. patient given cipro 500 mg and Flagyl x1 in the ER for possible diverticulitis WBC 11.6 on admission Will continue Levaquin 250 mg Q48H and Flagyl 500mg Q8H 06/29 blood culture bottle growing E coli WBC trending down, fever improving continue abx and continue to monitor possible GI source possible infected liver/kidney cyst RUQ pain Cholangiopancreatography MRI 05/20/18 1. Findings consistent with autosomal dominant polycystic kidney disease with innumerable hepatic and renal cysts present. Liver and kidneys are enlarged. 2. No acute findings seen. No gallbladder wall thickening demonstrated. No stones or evidence of ductal obstruction. Gallbladder Ultrasound 05/20/18 1. Limited examination. 2. No definitive sonographic evidence for cholelithiasis or acute cholecystitis. 3. Numerous hepatic cysts similar to previous exams and consistent with polycystic disease. Roxicodone 10 mg Q4H PRN with Morphine 4 mg IV for breakthrough pain continue Flexeril Solumedrol 125 mg IV now then 60 mg IV Q6H x3 Gout flare DC allopurinol Solumedrol 125 mg IV now then 60 mg IV Q6H x 3 Anemia, macrocytic - likely multifactorial on admission hgb 10.2 -> 9.0 (05/19) -> 8.8 (05/20) -> 8.9 (05/21) partially dilutional patient on continuous IV fluids patient also have polocytic liver and kidney disease B12 477 and Folate 8.8 continue protonix IV BID consult GI, appreciate input S/P EGD today 1. The esophagus appeared normal 2. There was mild gastritis in the gastric antrum; multiple biopsies were performed 3. Normal duodenal mucosa 4. Retroflexion was performed and was normal continue PPI Hyperkalemia On admission patient's potassium was 5.9 -> 4.8 (05/19) -> 4.6 (05/20) Patient given calcium gluconate, D50 and insulin in the emergency department DC Kayexalate continuous telemetry recheck BMP in AM HTN Hold home Furosemide 40 mg daily, irbesartan 150 mg daily due to renal function monitor renal function Constipation - resolved continue stool softeners laxative as needed DVT Prophylaxis with SCDs Progress Note: Quality VTE Deep Vein Thrombosis/Pulmonary Embolism Present on Admission: No
[2018-05-22] MEDS: Allopurinol 100 MG Tablet PO SCH (14:17)
[2018-05-22] MEDS: Levofloxacin 250 mg Premix Inj 250 MG/50 ML PIGGYBACK IV.SIG SCH (14:20)
[2018-05-22] MEDS: Pantoprazole Inj 40 MG Vial IV.PUSH SCH ×2 (14:21→20:31)
[2018-05-22] MEDS: Ferrous Sulfate 325 MG Tablet PO SCH (14:21)
[2018-05-22] MEDS: MethylPREDNISolone Sod Succinate Inj 125 MG/2 ML Vial IV.PUSH SCH (18:00)
--- NOTE | 2018-05-22 19:14 | P.PNNP ---
Subjective Interval history: Patient is doing okay Physical Exam Vital signs: Vital Signs 05/21/18 19:32 05/21/18 23:50 05/22/18 04:08 Temperature 97.9 F 97.7 F 97.8 F Pulse Rate 76 80 81 Respiratory Rate 18 18 Blood Pressure 116/59 L 125/62 116/56 L Pulse Oximetry 98 93 L 96 05/22/18 08:00 05/22/18 10:14 05/22/18 12:00 Temperature 97.6 F 97.6 F 97.8 F Pulse Rate 82 70 85 Respiratory Rate 18 18 17 Blood Pressure 115/61 105/65 146/80 H Pulse Oximetry 95 90 L 93 L 05/22/18 16:00 Temperature 98.1 F Pulse Rate 77 Respiratory Rate 18 Blood Pressure 144/73 H Pulse Oximetry 94 L Intake & Output 05/22/18 05/22/18 05/23/18 06:59 18:59 06:59 Intake Total 1560 / 1560 1610 / 1610 Output Total 400 / 400 Balance 1560 / 1560 1210 / 1210 Weight 99.4 kg Intake: IV 1200 / 1200 150 / 150 NS Inj 1,000 ML @ 70 mls/hr IV. 1000 / 1000 CONT .[id number] MAGUI Rx#:[id number] Levaquin 250 mg Premix Inj 250 50 / 50 mg In 50 ml @ 50 mls/hr IV.SIG Q48H MAGUI Rx#:[id number] Flagyl 500 MG Inj 100 ML @ 100 200 / 200 100 / 100 mls/hr IV.SIG Q8H MAGUI Rx#: [id number] Oral 360 / 360 960 / 960 Anesthesia Amount 500 / 500 Output: Urine 400 / 400 Other: # Voids 3 2 Date of Last Bowel Movement 05/21/18 05/22/18 # Bowel Movements 1 Narrative: GENERAL: Well-nourished, well-developed patient. SKIN: Warm and dry. HEAD: Normocephalic. EYES: No scleral icterus. No injection or drainage. NECK: Supple, trachea midline. No JVD or lymphadenopathy. CARDIOVASCULAR: Regular rate and rhythm without murmurs, gallops, or rubs. RESPIRATORY: Breath sounds equal bilaterally. No accessory muscle use. GASTROINTESTINAL: Abdomen distended mild tenderness on the right side bowel sounds present EXTREMITIES: No edema NEUROLOGICAL: Awake, alert, and oriented x 3. Non-focal. Assessment and Plan - Assessment (1) Acute kidney injury superimposed on chronic kidney disease Code(s): N17.9 - Acute kidney failure, unspecified; N18.9 - Chronic kidney disease, unspecified Status: Acute (2) Polycystic kidney disease Code(s): Q61.3 - Polycystic kidney, unspecified Status: Acute (3) Hypokalemia Code(s): E87.6 - Hypokalemia Status: Acute (4) Diverticulitis Code(s): K57.92 - Diverticulitis of intestine, part unspecified, without perforation or abscess without bleeding Status: Acute - Plan Patient has E. coli in blood likely urinary tract infection most likely has infected cyst he is on Levaquin continue to monitor for improvement Potassium in normal range Creatinine 4.32 declined Status post endoscopy biopsy pending gastritis seen Solu-Medrol given flareup of gout Sorbitol ordered for abdominal distention and no bowel movement today DC IV fluid Patient can be followed as outpatient
[2018-05-22] MEDS ORDERED: Sorbitol 70% Liq 30 ML UDC PO ONE (20:00)
[2018-05-22] MEDS ORDERED: Temazepam 15 MG Capsule PO SCH (21:00)
[2018-05-23] MEDS: MethylPREDNISolone Sod Succinate Inj 125 MG/2 ML Vial IV.PUSH SCH ×2 (00:27→06:12)
[2018-05-23 07:22] LABS: Calcium 8.1 mg/dL (8.5-10.1); Carbon Dioxide 17.6 meq/L (21.0-32.0); Potassium 4.6 meq/L (3.5-5.1)
[2018-05-23] MEDS: Ferrous Sulfate 325 MG Tablet PO SCH (08:09)
[2018-05-23] MEDS: Pantoprazole Inj 40 MG Vial IV.PUSH SCH (08:09)
[2018-05-23] MEDS ORDERED: predniSONE 20 MG Tablet PO ONE (10:18)
--- NOTE | 2018-05-23 21:49 | P.DS ---
DS: Providers Date of admission: 05/19/18 03:36 Primary care physician: No Primary Care Physician Consults: 05/19/18 03:45 Consult to Nephrology Routine Consulting Provider: Saurav Lee Does the patient have a Marketing Technology Specialist who follows them?: Yes Preferred Nephrology Jewelry Salesperson:: Saurav Lee Reason for Consultation: sammi Notified:: Service Spoke with:: KATIE Date Notified:: 05/19/18 Time Notified:: 04:35 Ordering Provider: LOIDA 05/20/18 12:18 Consult to Gastroenterology Routine Consulting Provider: Tessa Kasper Reason for Consultation: anemia, black tarry stools (on iron) RUQ pain. ? EGD Notified:: Service Spoke with:: JUAN JOSE Date Notified:: 05/20/18 Time Notified:: 12:57 Ordering Provider: AJAY Brief History from admission: This is a 72-year-old male With a past medical history which includes chronic kidney disease stage IV, gout, arthritis, BPH and hypertension. Patient came to the emergency room yesterday with history of lower abdominal x 3-4 day. Patient describes bilateral lower abdominal pain as a constant dull ache since Monday. Patient also reports T-max at home 102, chills, mild nausea and lack of appetite. Patient denies bright red bleeding per rectum. Patient does report black stools but reports his stools are typically black as he takes iron supplementation. Patient denies vomiting chest pain shortness of breath. Patient primarily lives in [place] does have a home here in [place] and reports he comes down and stays for a few months every year. Patient has a his primary field education director in [place] does not follow with a local field education director. Patient reports he is chronic kidney disease stage IV he believes his GFR is normally around 14 and in fact is waiting for a fistula in [place]. PMH: chronic kidney disease stage IV, gout, arthritis, BPH and hypertension PSxH: Colonoscopy, hand surgery, Hernia repair and Vasectomy Social history: , exercises regularly Retired Occasional EtOH use Denies tobacco use FMH: reviewed and noncontributory DS: Diagnosis Discharge Diagnosis (1) Acute kidney injury superimposed on chronic kidney disease: Status: Acute (2) Polycystic kidney disease: Status: Acute (3) Hypokalemia: Status: Acute (4) Diverticulitis: Status: Acute DS: Summary This is a 72-year-old male With a past medical history which includes chronic kidney disease stage V from Polycystic Kidney disease, gout, arthritis, BPH and hypertension. Patient came to the emergency room yesterday with history of lower abdominal x 3-4 day. Patient describes bilateral lower abdominal pain as a constant dull ache since Monday. Patient also reports T-max at home 102, chills, mild nausea and lack of appetite. Patient denies bright red bleeding per rectum. Patient does report black stools but reports his stools are typically black as he takes iron supplementation. Patient denies vomiting chest pain shortness of breath. Patient primarily lives in [place] does have a home here in [place] and reports he comes down and stays for a few months every year. Patient has a his primary field education director in [place] does not follow with a local field education director. Patient reports he is chronic kidney disease stage V he believes his GFR is normally around 14 and in fact is waiting for an AV fistula in [place]. SAMMI - Patient has a his primary field education director in [place] does not follow with a local field education director. Patient reports he is chronic kidney disease stage V he believes his GFR is normally around 14 and in fact is waiting for an AV fistula in [place]. - baseline CKD stage 4 with creatinine 3.26 (05/23/17) to 3.43 (08/11/17) - renal function on admission BUN 92, creatinine 5.92 and estimated GFR 9 - renal function on 05/19 BUN 84, creatinine 5.33 and estimated GFR 11 - renal function on 05/20 BUN 84, creatinine 5.26 and estimated GFR 11 - renal function on 05/21 BUN 75, creatinine 4.76 and estimated GFR 12 - renal function on 05/22 BUN 68, creatinine 4.32 and estimated GFR 14 - DC IVF On day of dc gfr 15 and cr 4 He will f/u nephrology on dc Abdominal pain Diverticulosis. No CT evidence for diverticulitis ?component of right abdomen/flank muscle stain 06/29 bottles blood cx positive for ecoli. ?biliary source. no uti. no obvious colonic inflammation. But on imaging bile duct and gb unremarkable ?infected liver cyst Abdomen/Pelvis CT 05/19/18 1. Polycystic kidney and liver disease with marked enlargement of the viscera. 2. No acute findings. Colonic diverticulosis. Cholangiopancreatography MRI 05/20/18 1. Findings consistent with autosomal dominant polycystic kidney disease with innumerable hepatic and renal cysts present. Liver and kidneys are enlarged. 2. No acute findings seen. No gallbladder wall thickening demonstrated. No stones or evidence of ductal obstruction. Gallbladder Ultrasound 05/20/18 1. Limited examination. 2. No definitive sonographic evidence for cholelithiasis or acute cholecystitis. 3. Numerous hepatic cysts similar to previous exams and consistent with polycystic disease. Gout flare DC allopurinol Solumedrol 125 mg IV now then 60 mg I EGD: mild gastritis. Pt was treated with iv protonix. He was given levaquin and flagyl for the infection We emperically gave him flexeril/solumedrol for possible muscle strain which seemed to be what essentially resolved his pain Anemia, macrocytic - likely multifactorial on admission hgb 10.2 -> 9.0 (05/19) -> 8.8 (05/20) -> 8.9 (05/21) partially dilutional patient on continuous IV fluids patient also have polocytic liver and kidney disease B12 477 and Folate 8.8 consult GI, appreciate input S/P EGD 1. The esophagus appeared normal 2. There was mild gastritis in the gastric antrum; multiple biopsies were performed 3. Normal duodenal mucosa 4. Retroflexion was performed and was normal continue PPI Hyperkalemia On admission patient's potassium was 5.9 -> 4.8 (05/19) -> 4.6 (05/20) Patient given calcium gluconate, D50 and insulin in the emergency department Kayexalate HTN held irbisartan and procardia for low bp. resume ccb as tolerated. Constipation - resolved continue stool softeners laxative as needed GOUT: acute flare of MTP joint. resolved with solumedrol cont allopurinol Time Spent with Patient Total time spent providing and/or coordinating discharge services: Quality: VTE Deep Vein Thrombosis/Pulmonary Embolism Present on Admission: No Results Completed studies during hospitalization [Text1]: Pending at discharge 05/22/18 12:49 Surgical [PTH] Routine Labs on day of discharge: Labs from last 24 hours 05/23/18 06:00 Sodium 140 Potassium 4.6 Chloride 113 H Carbon Dioxide 17.6 L Anion Gap 9 BUN 66 H Creatinine 4.03 H Estimated GFR 15 L Random Glucose 181 H Calcium 8.1 L Preliminary micro results at discharge 05/19/18 01:45 Aerobic Blood Culture - Preliminary Blood - Peripheral No growth in 4 days Anaerobic Blood Culture - Preliminary No growth in 4 days 05/19/18 01:45 Aerobic Blood Culture - Preliminary Blood - Peripheral No growth in 4 days 05/19/18 00:50 Aerobic Blood Culture - Preliminary Blood - Peripheral No growth in 4 days Anaerobic Blood Culture - Preliminary No growth in 4 days 05/19/18 00:55 Aerobic Blood Culture - Preliminary Blood - Peripheral No growth in 4 days Anaerobic Blood Culture - Preliminary No growth in 4 days Impressions ITS Impressions Abdomen/Pelvis CT 05/19/18 00:41 CONCLUSION: 1. Polycystic kidney and liver disease with marked enlargement of the viscera. 2. No acute findings. Colonic diverticulosis. Cholangiopancreatography MRI 05/20/18 00:00 CONCLUSION: 1. Findings consistent with autosomal dominant polycystic kidney disease with innumerable hepatic and renal cysts present. Liver and kidneys are enlarged. 2. No acute findings seen. No gallbladder wall thickening demonstrated. No stones or evidence of ductal obstruction. Gallbladder Ultrasound 05/20/18 00:00 CONCLUSION: 1. Limited examination. 2. No definitive sonographic evidence for cholelithiasis or acute cholecystitis. 3. Numerous hepatic cysts similar to previous exams and consistent with polycystic disease. Discharge Plan Discharge Disposition Patient Disposition: Discharge Home Discharge Condition Condition: Stable Discharge Order Discharge Orders: Discharge Order (Routine); Ordered 05/23/18 Ordered By: Eduin Ordonez Discharge Details Anticipated Discharge Date: 05/23/18 Physicians Team ED Provider: Yary Fernandes Primary Care Provider: Primary Care Talia Hammond Attending Provider: Eduin Ordonez Other Providers: Saurav Lee ; Tessa Kasper Rxs /Orders / Referrals /Forms Prescriptions: New levofloxacin 250 mg tablet 250 mg PO Q48H Qty: 4 RF: 0 metronidazole [Flagyl] 500 mg tablet 500 mg PO Q8H 7 Days Qty: 21 RF: 0 prednisone 10 mg tablet 10 mg PO DIRECTED Qty: 13 RF: 0 pantoprazole [Protonix] 40 mg tablet,delayed release (DR/EC) 40 mg PO DAILY Qty: 30 RF: 0 cyclobenzaprine 5 mg tablet 5 mg PO Q8H PRN (Reason: muscle spasm) Qty: 10 RF: 0 Continue furosemide 40 mg Tablet 40 mg PO DAILY RF: 0 allopurinol 100 mg Tablet 100 mg PO DAILY RF: 0 Zopiclone 7 mg PO HS RF: 0 ferrous fumarate 600 mg PO HS RF: 0 Discontinued irbesartan 150 mg Tablet 150 mg PO DAILY RF: 0 nifedipine 30 mg Tablet Extended Release 24hr 30 mg PO QAM RF: 0 Referrals: Vern Singleton MD [Physician] - See Instructions (call and f/u 7-10days.) Saurav Lee MD [Physician] - See Instructions (f/u 1-2 weeks.) Discharge Instructions Patient Printed Instructions: Prednisone (By mouth), Cyclobenzaprine (By mouth) , Metronidazole (By mouth), Levofloxacin (By mouth), Pantoprazole (By mouth), Gastritis (DC) Post Discharge Care Plan Care Plan Goals: Your Health Problems: Goals to Promote Your Health: * To prevent worsening of your condition * To maintain your health at the optimal level Directions to Meet Your Goals: * Take your medications as prescribed * Follow your dietary instruction * Follow activity as directed * Keep your appointments as scheduled * Take your immunizations and boosters as scheduled * If your symptoms worsen call your PCP * If no PCP go to Urgent Care or Emergency Room Smoking is dangerous to your health. Avoid second hand smoke. You may reach the 24-hour crisis hotline for domestic abuse at . Status ED Status: Left Department Discharge Information Discharge Date/Time: 05/23/18 11:42
== END 2018-05-23 11:42 | disposition home or self-care (01) ==
LOC: NEPC 00:08 → NEDA 03:36 → N06 06:53
PROVIDERS: ADMIT Hospitalist; ATTEND Hospitalist
PROC: PANENDO (2018-05-22 09:39)
DX: D63.1 Anemia in chronic kidney disease; Q61.2 Polycystic kidney, adult type; M19.90 Unspecified osteoarthritis, unspecified site; H35.30 Unspecified macular degeneration; B96.20 Unspecified Escherichia coli [E. coli] as the cause of diseases classified elsewhere; Z68.34 Body mass index [BMI] 34.0-34.9, adult; Z87.891 Personal history of nicotine dependence; E66.9 Obesity, unspecified; N28.85 Pyeloureteritis cystica; E86.0 Dehydration; D53.9 Nutritional anemia, unspecified; K76.89 Other specified diseases of liver; K57.32 Diverticulitis of large intestine without perforation or abscess without bleeding; Z82.71 Family history of polycystic kidney; M10.9 Gout, unspecified; I12.0 Hypertensive chronic kidney disease with stage 5 chronic kidney disease or end stage renal disease; E87.5 Hyperkalemia; R78.81 Bacteremia; K59.00 Constipation, unspecified; N17.9 Acute kidney failure, unspecified; K29.50 Unspecified chronic gastritis without bleeding; N18.5 Chronic kidney disease, stage 5; N40.0 Benign prostatic hyperplasia without lower urinary tract symptoms